=== PATIENT | female | born 1965 | race Caucasian/White ===

== ENCOUNTER 2019-08-17 08:36 | Outpatient (CLI) | payer OTHER, SELFPAY ==
[2019-08-17 09:08] LABS: Alanine Aminotransferase 21 U/L (4-35); Albumin Level 4.1 g/dL (3.5-5.1); Alkaline Phosphatase 73 U/L (38-126); Aspartate Amino Transferase 25 U/L (14-36); Bilirubin,Total 0.6 mg/dL (0.2-1.3); Blood Urea Nitrogen 12 mg/dL (7-17); Calcium 9.3 mg/dL (8.4-10.2); Carbon Dioxide 26 mmol/L (22-30); Chloride 101 mmol/L (98-107); Cholesterol 155 mg/dL (0-200); Estimated Glomerular Filt Rate > 60; Glucose 100 mg/dL (65-105); HDL Direct 28 mg/dL; Sodium 138 mmol/L (137-145); Triglycerides 307 mg/dL (<150)
[2019-08-17 09:19] LABS: LDL Cholesterol Direct 74 mg/dL
[2019-08-20 17:42] LABS: Vitamin D 1,25 (OH)2 Total 118 pg/mL (18-72); Vitamin D2 1,25 (OH)2 <8 pg/mL; Vitamin D3 1,25 (OH)2 118 pg/mL
== END 2019-08-17 08:37 | disposition home or self-care (01) ==
PROVIDERS: PCP Emergency Medicine; Visit Provider Emergency Medicine
DX: E78.2 Mixed hyperlipidemia (principal); E55.9 Vitamin D deficiency, unspecified
CPT/HCPCS: 36415; 80053; 80061; 82652

== ENCOUNTER 2019-11-12 13:23 | Emergency (ER) | payer OTHER, SELFPAY ==
--- NOTE | ~2019-11-12 | XR_ITS ---
EXAMINATION: XR wrist RT min 3V DATE: 11/12/2019 14:11 INDICATION: Right wrist injury and pain. TECHNIQUE: 4 views of right wrist were obtained. COMPARISON: None. FINDINGS: Bone alignment is normal. No fracture. There is mild osteoarthritis of first carpometacarpa l joint and second metacarpophalangeal joint. IMPRESSION: 1. Mild polyarticular osteoarthritis. Reviewed, dictated and finalized at location A.
--- NOTE | ~2019-11-12 | XR_ITS ---
EXAMINATION: XR knee LT min 4V DATE: 11/12/2019 14:13 INDICATION: Left knee injury and pain. TECHNIQUE: 4 views of left knee were obtained. COMPARISON: Left knee radiographs 06/26/2013 FINDINGS: Bone alignment is normal. No fracture. There is mild osteoarthritis of medial and lateral c ompartments and moderate osteoarthritis of patellofemoral compartment. There is a moderate-sized knee joint effusion. IMPRESSION: 1. Moderate left knee osteoarthritis. 2. Moderate-sized left knee joint effusion. Reviewed, dictated and finalized at location A.
--- NOTE | ~2019-11-12 | XR_ITS ---
EXAMINATION: XR forearm LT 2V DATE: 11/12/2019 14:11 INDICATION: Left forearm injury. TECHNIQUE: 2 views of left forearm were obtained. COMPARISON: None. FINDINGS: Bone alignment is normal. No fracture. Joint spaces are well maintained. There is no elbow joint effusion. IMPRESSION: 1. No fracture. Reviewed, dictated and finalized at location A. IMPRESSION: 1. No fracture.
[2019-11-12 13:39] VITALS: BP 146/94; PULSE 78; RESP 20; TEMP 36.3; O2SAT 99
[2019-11-12 15:21] VITALS: BP 152/98; PULSE 71; RESP 18; TEMP 36.2; O2SAT 98
--- NOTE | 2019-11-12 15:41 | ED.LOWEXIN ---
HPI - Extremity Injury (Lower) General Chief Complaint: Extremity Injury, Lower <Diana Orr PA-C - Last Filed: 11/12/19 19:20> Stated Complaint: fell, knee and elbow pain <Diana Orr PA-C - Last Filed: 11/12/19 19:20> Time Seen by Provider: 11/12/19 13:45 <Diana Orr PA-C - Last Filed: 11/12/19 19:20> Source: patient <Diana Orr PA-C - Last Filed: 11/12/19 19:20> Mode of arrival: ambulatory <THALIA Lvoe Last Filed: 11/12/19 19:20> Limitations: no limitations <iDana Orr PA-C - Last Filed: 11/12/19 19:20> History of Present Illness HPI Narrative: Patient presents with chief complaint of pain to left knee, left elbow and right palm after landing on these areas after tripping and falling in the cafeteria prior to come to the emergency department. Patient denies prior fractures to the extremities. Patient does report past carpal tunnel surgery to right wrist. Patient reports tight sensation to the left knee. Patient notes some improvement in her discomfort with application of ice. Patient states that she was concerned with how hard she came down on the knee that she may have fractured her patella. Patient denies any chance of or any other symptoms. Patient denies any impact to her head, chest pain, shortness of breath or any other symptoms. <Diana Orr PA-C - Last Filed: 11/12/19 19:20> Related Data Home Medications: Home Medications Medication Instructions Recorded Confirmed magnesium 500 mg PO DAILY 05/02/19 05/02/19 norethindrone ac-eth estradiol 1 tablet PO DAILY 05/02/19 05/02/19 [05/13 (21)] vitamin B complex 1 tablet PO DAILY 05/02/19 05/02/19 acyclovir 5 % topical cream See Rx Instructions .ROUTE .COMPLEX 09/09/19 cyclobenzaprine 10 mg tablet 10 mg PO TID PRN 09/09/19 <THALIA Love Last Filed: 11/12/19 19:20> Allergies/Adverse Reactions: Allergies Allergy/AdvReac Type Severity Reaction Status Date / Time MEPERIDINE HCL Allergy Intermediate NAUSEA Uncoded 11/12/19 13:43 METOCLOPRAMIDE HCL Allergy Intermediate JITTERY Uncoded 11/12/19 13:43 <Diana Orr PA-C - Last Filed: 11/12/19 19:20> Review of Systems Review of Systems: Narrative: CONSTITUTIONAL: Denies fever, chills, or sweats. EYES: Denies visual changes, redness, or discharge. ENT: Denies rhinorrhea, congestion, sore throat, or otalgia. CARDIOVASCULAR: Denies chest pain, palpitations, or edema. RESPIRATORY: Denies cough or dyspnea. GASTROINTESTINAL: Denies abdominal pain, nausea, vomiting, or diarrhea. GENITOURINARY: Denies dysuria or hematuria. SKIN: Denies rash or itching. MUSCULOSKELETAL: Reports right hand, left elbow, left knee pain denies back pain or myalgia. NEUROLOGIC: Denies headache, numbness, dizziness, or weakness. PSYCHIATRIC: Denies anxiety or depression. <Diana Orr PA-C - Last Filed: 11/12/19 19:20> [facility] Social History Social History: Social History Smoking status: Never smoker Alcohol intake: current <Diana Orr PA-C - Last Filed: 11/12/19 19:20> Exam Narrative: Exam Narrative: GENERAL: Well-appearing, well-nourished, and in no acute distress. HEAD: Normocephalic, atraumatic. EYES: PERRLA and EOMI. ENT: Nares clear, no rhinorrhea or epistaxis. External ears without noted abnormalities. External mouth without abnormalities. NECK: Supple. No adenopathy or masses. No carotid bruits or JVD CHEST: No respiratory distress. No tachypnea or labored breathing. ABDOMEN: Soft, nontender, nondistended, normal active bowel sounds. EXTREMITIES: Tenderness palpation of left knee. No significant laxity noted. No abrasions or lacerations noted. Flexion uncomfortable but only decreased by approximately 20%. Diffuse tenderness to left elbow and right palm. No bony point tenderness noted. No abrasions. Healed surgical scar noted to dorsal asp
== END 2019-11-12 15:57 | disposition home or self-care (01) ==
PROVIDERS: Emergency Provider Emergency Medicine
DX: M25.462 Effusion, left knee (principal)
CPT/HCPCS: 73090; 73110; 73564; 99284

== ENCOUNTER 2020-01-13 07:56 | Outpatient (CLI) | payer OTHER, SELFPAY ==
[2020-01-13 09:01] LABS: Alanine Aminotransferase 22 U/L (4-35); Albumin Level 3.9 g/dL (3.5-5.1); Alkaline Phosphatase 73 U/L (38-126); Anion Gap 9 mmol/L (8-16); Aspartate Amino Transferase 24 U/L (14-36); Bilirubin,Total 0.6 mg/dL (0.2-1.3); Blood Urea Nitrogen 13 mg/dL (7-17); Calcium 9.5 mg/dL (8.4-10.2); Carbon Dioxide 24 mmol/L (22-30); Chloride 102 mmol/L (98-107); Cholesterol 166 mg/dL (0-200); Estimated Glomerular Filt Rate > 60; Glucose 115 mg/dL (65-105); HDL Direct 34 mg/dL; Potassium 4.3 mmol/L (3.4-5.0); Sodium 135 mmol/L (137-145); Triglycerides 317 mg/dL (<150)
[2020-01-13 09:13] LABS: LDL Cholesterol Direct 79 mg/dL
[2020-01-13 09:18] LABS: Vitamin D 25 Hydroxy 37.2 ng/mL
== END 2020-01-13 07:57 | disposition home or self-care (01) ==
PROVIDERS: PCP Emergency Medicine; Visit Provider Emergency Medicine
DX: E55.9 Vitamin D deficiency, unspecified (principal); E53.8 Deficiency of other specified B group vitamins; E78.2 Mixed hyperlipidemia
CPT/HCPCS: 36415; 80053; 80061; 82306; 82607; 82746

== ENCOUNTER 2020-02-05 08:28 | Outpatient (CLI) | payer OTHER, SELFPAY ==
--- NOTE | ~2020-02-05 | MM_ITS ---
EXAMINATION: MM screening judith BI w lena HISTORY: Screening TECHNIQUE: Craniocaudal and mediolateral oblique 3-D tomosynthesis images were obtained and synthetic 2-D images were generated. CAD analysis was submitted and interpreted. COMPARISON: Comparison to multiple prior studies sequentially, with oldest reviewed study dated 11/09. BREAST PARENCHYMAL COMPOSITION: There are scattered areas of fibroglandular density. FINDINGS: There is no evidence of suspicious mass, calcification, or architectural distortion to sugg est malignancy in either breast. There has been no suspicious interval change. IMPRESSION: 1. No mammographic evidence of malignancy. 2. Recommend routine screening mammography in one year. BI-RADS Category 1: Negative Reviewed, dictated and finalized at location A.
== END 2020-02-05 08:29 | disposition home or self-care (01) ==
LOC: ANHIMG 08:30
PROVIDERS: PCP Emergency Medicine; Visit Provider Obstetrics & Gynecology
DX: Z12.31 Encounter for screening mammogram for malignant neoplasm of breast (principal)
CPT/HCPCS: 77063; 77067

== ENCOUNTER 2020-05-30 11:21 | Outpatient (CLI) | payer OTHER, SELFPAY ==
[2020-05-30 12:03] LABS: Alanine Aminotransferase 27 U/L (4-35); Albumin Level 3.9 g/dL (3.5-5.1); Alkaline Phosphatase 77 U/L (38-126); Anion Gap 6 mmol/L (8-16); Aspartate Amino Transferase 30 U/L (14-36); Bilirubin,Total 0.6 mg/dL (0.2-1.3); Blood Urea Nitrogen 15 mg/dL (7-17); Calcium 8.9 mg/dL (8.4-10.2); Carbon Dioxide 28 mmol/L (22-30); Chloride 103 mmol/L (98-107); Cholesterol 167 mg/dL (0-200); Estimated Glomerular Filt Rate > 60; Glucose 92 mg/dL (65-105); HDL Direct 36 mg/dL; Potassium 4.1 mmol/L (3.4-5.0); Sodium 137 mmol/L (137-145); Triglycerides 313 mg/dL (<150)
[2020-05-30 12:14] LABS: LDL Cholesterol Direct 76 mg/dL
[2020-05-30 14:25] LABS: Hemoglobin A1C 5.7 % (<5.7)
== END 2020-05-30 11:22 | disposition home or self-care (01) ==
LOC: ANHLAB 11:22
PROVIDERS: PCP Emergency Medicine; Visit Provider Emergency Medicine
DX: E78.5 Hyperlipidemia, unspecified (principal); E11.9 Type 2 diabetes mellitus without complications
CPT/HCPCS: 36415; 80053; 80061; 83036

== ENCOUNTER 2021-02-09 14:14 | Outpatient (CLI) | payer OTHER, SELFPAY ==
--- NOTE | ~2021-02-09 | MM_ITS ---
EXAMINATION: MM screening judith BI w lena HISTORY: Screening mammogram TECHNIQUE: Craniocaudal and mediolateral oblique 3-D tomosynthesis images were obtained and synthetic 2-D images were generated. CAD analysis was submitted and interpreted. COMPARISON: 02/05/2020, 01/08/2019, 11/10/2017 bilateral digital screening mammogram examinations BREAST PARENCHYMAL COMPOSITION: There are scattered areas of fibroglandular density. FINDINGS: There are multiple stable circumscribed subcentimeter opacities in the right axillary tail area and to a lesser extent left axillary tail, likely due to benign intramammary lymph nodes. There is no evidence of suspicious mass, calcification, or architectural distortion to suggest malignancy i n either breast. There has been no suspicious interval change. IMPRESSION: 1. No mammographic evidence of malignancy. 2. Recommend routine screening mammography in one year. BI-RADS Category 2: Benign finding(s). Reviewed, dictated and finalized at location A.
== END 2021-02-09 14:15 | disposition home or self-care (01) ==
LOC: ANHIMG 14:15
PROVIDERS: PCP Emergency Medicine; Visit Provider Obstetrics & Gynecology
DX: Z12.31 Encounter for screening mammogram for malignant neoplasm of breast (principal)
CPT/HCPCS: 77063; 77067

== ENCOUNTER 2021-05-09 09:04 | Emergency (ER) | payer OTHER, SELFPAY ==
--- NOTE | 2021-05-09 09:12 | ED.GENADULT ---
HPI - General Adult General Chief complaint: Upper Respiratory Infection Stated complaint: sore throat/benedict/aches Time Seen by Provider: 05/09/21 09:12 Source: patient Mode of arrival: ambulatory Limitations: no limitations Related Data Home Medications Medication Instructions Recorded Confirmed magnesium 500 mg PO DAILY 05/02/19 05/02/19 norethindrone ac-eth estradiol 1 tablet PO DAILY 05/02/19 05/02/19 [Junel 05/13 (21)] vitamin B complex 1 tablet PO DAILY 05/02/19 05/02/19 lysine 500 mg tablet 500 mg PO DAILY 11/15/19 L.acidophil-L.plantar-Bifido 7 PO 11/21/19 [up4 Probiotics Adult] vitamin E mixed PO 11/21/19 Allergies Allergy/AdvReac Type Severity Reaction Status Date / Time MEPERIDINE HCL Allergy Intermediate NAUSEA Uncoded 05/09/21 09:18 METOCLOPRAMIDE HCL Allergy Intermediate JITTERY Uncoded 05/09/21 09:18 Review of Systems Review of Systems: CONSTITUTIONAL: Denies fever, chills, or sweats. EYES: Denies visual changes, redness, or discharge. ENT: Denies rhinorrhea, congestion, sore throat, or otalgia. CARDIOVASCULAR: Denies chest pain, palpitations, or edema. RESPIRATORY: Denies cough or dyspnea. GASTROINTESTINAL: Denies abdominal pain, nausea, vomiting, or diarrhea. GENITOURINARY: Denies dysuria or hematuria. SKIN: Denies rash or itching. MUSCULOSKELETAL: Denies back pain, joint pain, or myalgia. NEUROLOGIC: Denies headache, numbness, or weakness. PSYCHIATRIC: Denies anxiety or depression. [facility] Past Medical History Medical History Cervical endometriosis Contusion of left forearm (11/12/19) Contusion of left knee (11/12/19) GERD (gastroesophageal reflux disease) Hypertension Hypothyroid Morbid obesity KEITH (obstructive sleep apnea) Sleep apnea Sprain of right hand (11/12/19) Vision abnormalities Surgical History Surgical History Hx laparoscopic cholecystectomy Hx of carpal tunnel repair Hx of section Hx of esophagogastroduodenoscopy S/P removal of right ovary Family History Family History Father Hypertension Mother Hypertension Sibling Family history of gastrointestinal disorder Diabetes mellitus Hypertension Grandparent Acute myocardial infarction Grandparent Multiple myeloma Other Cerebrovascular accident Family history of cardiovascular disease Family history of kidney disease Social History Social History Smoking status: Never smoker Alcohol intake: current Comments At the time of my signature I agree with nursing past medical history, surgical, social, and family history. There is no relevant family history pertinent to the presenting complaint. Exam Narrative: GENERAL: Well-appearing, well-nourished, and in no acute distress. HEAD: Normocephalic, atraumatic. EYES: PERRLA and EOMI. ENT: Nares clear, no rhinorrhea or epistaxis. Mucous membranes moist. NECK: Supple. No lymphadenopathy CHEST: Clear to auscultation. No respiratory distress. HEART: Regular rate and rhythm. No murmur heard. Normal peripheral pulses. ABDOMEN: Soft, nontender, nondistended, normal active bowel sounds. EXTREMITIES: Normal range of motion. No edema. SKIN: Warm, dry, no rash. NEURO: No focal deficits. Alert and oriented x3. Course Course Level of Care: Express Care Visit Vital Signs Vital signs: Vital Signs Temperature 36.9 C 05/09/21 09:13 Pulse Rate 69 05/09/21 09:13 Respiratory Rate 05/09/21 09:13 Blood Pressure 172/82 H 05/09/21 09:13 Pulse Oximetry 97 05/09/21 09:13 Temperature 36.9 C 05/09/21 09:13 Pulse Rate 69 05/09/21 09:13 Respiratory Rate 05/09/21 09:13 Blood Pressure 172/82 H 05/09/21 09:13 Pulse Oximetry 97 05/09/21 09:13 Vital signs reviewed Medical Decision Making Differential Diagnos
[2021-05-09 09:13] VITALS: BP 172/82; PULSE 69; RESP 20; TEMP 36.9; O2SAT 97
[2021-05-10 13:26] LABS: SARS-CoV-2 RNA PCR Positive
== END 2021-05-09 09:50 | disposition home or self-care (01) ==
PROVIDERS: Emergency Provider Nurse Practitioner Family; PCP Emergency Medicine
DX: U07.1 COVID-19 (principal); N80.0 Endometriosis of uterus; K21.9 Gastro-esophageal reflux disease without esophagitis; I10 Essential (primary) hypertension; E03.9 Hypothyroidism, unspecified; G47.33 Obstructive sleep apnea (adult) (pediatric)
CPT/HCPCS: 87804; 99213; C9803; G0463; U0003; U0005

== ENCOUNTER 2021-08-06 08:14 | Outpatient (CLI) | payer OTHER, SELFPAY ==
[2021-08-06 08:46] LABS: Alanine Aminotransferase 37 U/L (4-35); Albumin Level 3.8 g/dL (3.5-5.1); Alkaline Phosphatase 83 U/L (38-126); Anion Gap 11 mmol/L (8-16); Aspartate Amino Transferase 71 U/L (14-36); Bilirubin,Total 0.4 mg/dL (0.2-1.3); Blood Urea Nitrogen 13 mg/dL (7-17); Calcium 8.2 mg/dL (8.4-10.2); Carbon Dioxide 22 mmol/L (22-30); Chloride 102 mmol/L (98-107); Cholesterol 159 mg/dL (0-200); Estimated Glomerular Filt Rate > 60; Glucose 134 mg/dL (65-110); HDL Direct 32 mg/dL; Potassium 3.2 mmol/L (3.4-5.0); Sodium 135 mmol/L (137-145); Triglycerides 371 mg/dL (<150)
[2021-08-06 08:57] LABS: LDL Cholesterol Direct 56 mg/dL
[2021-08-12 15:01] LABS: Renin 6.11 ng/mL/h (0.25-5.82)
== END 2021-08-06 08:15 | disposition home or self-care (01) ==
LOC: ANHLAB 08:16
PROVIDERS: PCP Emergency Medicine; Visit Provider Emergency Medicine
DX: I10 Essential (primary) hypertension (principal); E03.9 Hypothyroidism, unspecified; Z13.220 Encounter for screening for lipoid disorders
CPT/HCPCS: 36415; 80053; 80061; 82533; 84244; 84443

== ENCOUNTER 2021-08-17 15:13 | Outpatient (CLI) | payer OTHER, SELFPAY ==
[2021-08-17 16:18] LABS: Potassium 4.1 mmol/L (3.4-5.0)
== END 2021-08-17 15:14 | disposition home or self-care (01) ==
PROVIDERS: PCP Emergency Medicine; Visit Provider Emergency Medicine
DX: E87.6 Hypokalemia (principal); I10 Essential (primary) hypertension
CPT/HCPCS: 36415; 82088; 84132

== ENCOUNTER 2021-09-10 07:46 | Outpatient (CLI) | payer OTHER, SELFPAY ==
--- NOTE | ~2021-09-10 | US_ITS ---
EXAMINATION: US retroperitoneal duplex ltd DATE: 09/10/2021 09:27 CDT INDICATION: Essential hypertension TECHNIQUE: Multiple grayscale, color Doppler, and pulsed Doppler images of the kidneys and renal zay david were obtained. COMPARISON: None. FINDINGS: The aorta peak systolic velocity is 102 cm/s. The right renal artery peak systolic velocity is 159 cm /s in the proximal segment, 175 cm/s in the mid segment, 167 cm/s in the distal segment. The left jaleel al artery peak systolic velocity is 146 cm/s in the proximal segment, 143 cm/s in the mid segment, 14 3 cm/s in the distal segment. The renal artery/aorta systolic ratio on the right is 1.7 and on the left is 1.42. Notes: renal artery stenosis is >=180-200 cm/s or >3.5:1 ratio of renal artery velocity to aorta. Thi s correlates with >50-60% stenosis. IMPRESSION: 1. No Doppler evidence of renal artery stenosis. Reviewed, dictated and finalized at location D.
== END 2021-09-10 07:47 | disposition home or self-care (01) ==
LOC: ANHIMG 07:49
PROVIDERS: PCP Emergency Medicine; Visit Provider Emergency Medicine
DX: I10 Essential (primary) hypertension (principal)
CPT/HCPCS: 93976

== ENCOUNTER 2021-09-21 07:37 | Outpatient (CLI) | payer OTHER, SELFPAY ==
[2021-09-21 08:43] LABS: Albumin Level 4.1 g/dL (3.5-5.1); Anion Gap 9 mmol/L (8-16); Blood Urea Nitrogen 18 mg/dL (7-17); Carbon Dioxide 27 mmol/L (22-30); Chloride 102 mmol/L (98-107); Estimated Glomerular Filt Rate > 60; Glucose 170 mg/dL (65-110); Sodium 138 mmol/L (137-145)
[2021-09-21 08:51] LABS: Total Volume 24 Hour Urine 2300 ml
[2021-09-21 08:54] LABS: Parathyroid Intact 44.1 pg/mL (7.5-53.5)
[2021-09-21 08:55] LABS: Sodium Urine Random 177 meq/L
[2021-09-21 09:01] LABS: Sodium 24 Hour Urine 407 mmol/day (40-220)
[2021-09-27 11:29] LABS: Renin 2.91 ng/mL/h (0.25-5.82)
== END 2021-09-21 07:38 | disposition home or self-care (01) ==
LOC: ANHLAB 07:39
PROVIDERS: PCP Emergency Medicine; Visit Provider Internal Medicine Nephrology
DX: I10 Essential (primary) hypertension (principal)
CPT/HCPCS: 36415; 80069; 81050; 82088; 82530; 83835; 83970; 84244; 84300

== ENCOUNTER 2021-10-21 07:39 | Outpatient (CLI) | payer OTHER, SELFPAY ==
[2021-10-26 09:10] LABS: Metanephrine, Free <25 pg/mL (<=57); Normetanephrine, Free 41 pg/mL (<=148); Total, Free (MN + NMN) 41 pg/mL (<=205)
== END 2021-10-21 07:40 | disposition home or self-care (01) ==
PROVIDERS: PCP Emergency Medicine; Visit Provider Internal Medicine Nephrology
DX: R79.89 Other specified abnormal findings of blood chemistry (principal); I10 Essential (primary) hypertension
CPT/HCPCS: 36415; 83835; 84443

== ENCOUNTER 2021-12-03 09:10 | Outpatient (CLI) | payer OTHER, SELFPAY ==
--- NOTE | ~2021-12-03 | CT_ITS ---
EXAMINATION: CTA abdomen DATE: 12/03/2021 14:15 CDT INDICATION: Hypertension. TECHNIQUE: Computed tomographic angiography (CTA) of the abdomen was performed without and with 100 m L Omnipaque-350 intravenous contrast. The dose-length product was 1003.73 mGy-cm. Maximum intensity p rojection 3D-reconstructions of the aorta and other arteries were constructed by the technologist on a separate workstation. COMPARISON: CT dated 08/08/2003. FINDINGS: There is dependent atelectasis. Heart size normal. No significant pleural or pericardial ef fusion. Fatty infiltration of the liver. Status post cholecystectomy. There are calcified granulomas of the spleen. The pancreas, adrenal glands and kidneys are unremarkable. The celiac axis, renal zay david, SMA and AMALIA are widely patent. There is a peripherally calcified 2.5 cm right renal artery aneu rysm which appears slightly increased in size compared with prior examination. There is a fat-contain ing umbilical hernia. No evidence for aortic aneurysm or dissection. No free air or free fluid. IMPRESSION: 1. 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 2: No significant evidence for renal artery stenosis. Reviewed, dictated and finalized at location A. IMPRESSION: 1. Slightly increased size of 2.5 cm right renal artery aneurysm which is perip herally calcified. 2: No significant evidence for renal artery stenosis.
[2021-12-03 09:34] LABS: Estimated Glomerular Filt Rate > 60
== END 2021-12-03 09:11 | disposition home or self-care (01) ==
LOC: ANHIMG 09:13
PROVIDERS: PCP Emergency Medicine; Visit Provider Internal Medicine Nephrology
DX: I10 Essential (primary) hypertension (principal); I72.2 Aneurysm of renal artery
CPT/HCPCS: 74175; Q9967

== ENCOUNTER 2022-01-19 14:37 | Outpatient (CLI) | payer OTHER, SELFPAY ==
[2022-01-19 15:14] LABS: Creatinine Urine 74.9 mg/dL
[2022-01-19 15:44] LABS: Total Protein Urine Random < 5 mg/dL; Ur Ttl Prot Creatinine Ratio < 0.07 mg/mg (0-0.20)
[2022-01-19 16:07] LABS: Albumin Level 4.2 g/dL (3.5-5.1); Anion Gap 14 mmol/L (8-16); Blood Urea Nitrogen 14 mg/dL (7-17); Calcium 9.2 mg/dL (8.4-10.2); Carbon Dioxide 24 mmol/L (22-30); Chloride 99 mmol/L (98-107); Estimated Glomerular Filt Rate > 60; Glucose 122 mg/dL (65-110); Phosphorus 4.3 mg/dL (2.5-4.5); Potassium 3.7 mmol/L (3.4-5.0); Sodium 137 mmol/L (137-145)
== END 2022-01-19 14:38 | disposition home or self-care (01) ==
LOC: ANHLAB 14:38
PROVIDERS: PCP Emergency Medicine; Visit Provider Internal Medicine Nephrology
DX: I10 Essential (primary) hypertension (principal)
CPT/HCPCS: 36415; 80069; 82570; 84156

== ENCOUNTER 2022-06-15 07:48 | Outpatient (CLI) | payer OTHER, SELFPAY ==
--- NOTE | ~2022-06-15 | CT_ITS ---
EXAMINATION: CTA abdomen pelvis DATE: 06/15/2022 08:27 INDICATION: Renal artery aneurysm TECHNIQUE: Computed tomographic angiography (CTA) of the abdomen and pelvis was performed with 100 mL Omnipaque-350 intravenous contrast. Additional 3D reconstructions utilizing rotating maximum intensi ty projection (MIP) were performed. Automated exposure control and iterative reconstruction technique were employed. The dose-length product was 1653.26 mGy-cm. COMPARISON: 12/03/2021 FINDINGS: Dependent mosaic attenuation with associated mild volume loss in the bilateral lower lobes consistent with atelectasis with subsegmental regions of air trapping related to small airway disease. Cardiome cade. No pericardial effusion. Calcified paraesophageal lymph nodes along with a few small splenic ca lcifications consistent with old granulomatous disease. Diffuse hepatic steatosis. Cholecystectomy cl ips the gallbladder fossa. Pancreas and bilateral adrenal glands are normal. Unchanged rim calcified right renal artery aneurysm measuring 2.5 cm maximal diameter on sagittal imaging. Bilateral kidneys are otherwise normal. Sigmoid diverticula without adjacent inflammatory stranding to suggest divertic ulitis. Small bowel and appendix are normal. Bladder, uterus and left ovary are normal. Is nonvisuali zed right ovary with suture line at the right adnexa suggesting prior right oophorectomy. No free int raperitoneal gas or fluid. No pathologically enlarged abdominal or pelvic lymphadenopathy. Normal merced iber abdominal aorta. Small amount of nonhemodynamically significant atherosclerotic calcification al sarina the bilateral iliac arteries. No significant stenosis at the celiac axis, superior and inferior m esenteric or bilateral renal arteries. Inferior mesenteric artery Moderate thoracic and mild lumbar s pondylosis. There are bridging osteophytes at multiple levels in the thoracic spine, consistent with diffuse idiopathic skeletal hyperostosis (DISH). IMPRESSION: 1. 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 Reviewed, dictated and finalized at location A. OR [employer]
[2022-06-15 08:16] LABS: Estimated Glomerular Filt Rate > 60
== END 2022-06-15 07:49 | disposition home or self-care (01) ==
LOC: ANHIMG 07:49
PROVIDERS: PCP Emergency Medicine; Visit Provider Internal Medicine
DX: I72.2 Aneurysm of renal artery (principal)
CPT/HCPCS: 74174; Q9967

== ENCOUNTER 2022-06-29 07:37 | Outpatient (CLI) | payer OTHER, SELFPAY ==
[2022-06-29 08:17] LABS: Creatinine Urine 66.4 mg/dL
[2022-06-29 08:18] LABS: Alanine Aminotransferase 27 U/L (6-35); Albumin Level 4.4 g/dL (3.5-5.1); Alkaline Phosphatase 98 U/L (38-126); Anion Gap 10 mmol/L (8-16); Anion Gap 7 mmol/L (8-16); Aspartate Amino Transferase 29 U/L (14-36); Bilirubin,Total 0.6 mg/dL (0.2-1.3); Blood Urea Nitrogen 16 mg/dL (7-17); Blood Urea Nitrogen 17 mg/dL (7-17); Calcium 9.2 mg/dL (8.4-10.2); Calcium 9.3 mg/dL (8.4-10.2); Carbon Dioxide 26 mmol/L (22-30); Chloride 102 mmol/L (98-107); Chloride 99 mmol/L (98-107); Cholesterol 209 mg/dL (0-200); Estimated Glomerular Filt Rate > 60; Glucose 124 mg/dL (65-110); HDL Direct 37 mg/dL; Phosphorus 4.9 mg/dL (2.5-4.5); Potassium 3.8 mmol/L (3.4-5.0); Sodium 132 mmol/L (137-145); Sodium 138 mmol/L (137-145); Triglycerides 467 mg/dL (<150)
[2022-06-29 08:29] LABS: LDL Cholesterol Direct 77 mg/dL
[2022-06-29 08:59] LABS: Total Protein Urine Random < 5 mg/dL; Ur Ttl Prot Creatinine Ratio < 0.08 mg/mg (0-0.20)
[2022-07-03 16:01] LABS: Vitamin D 1,25 (OH)2 Total 60 pg/mL (18-72); Vitamin D2 1,25 (OH)2 <8 pg/mL; Vitamin D3 1,25 (OH)2 60 pg/mL
== END 2022-06-29 07:38 | disposition home or self-care (01) ==
LOC: ANHLAB 07:38
PROVIDERS: PCP Emergency Medicine; Referring Provider Internal Medicine Nephrology; Visit Provider Emergency Medicine
DX: R53.83 Other fatigue (principal); I10 Essential (primary) hypertension
CPT/HCPCS: 36415; 80053; 80061; 80069; 82570; 82652; 84156; 84443

== ENCOUNTER 2022-07-05 15:57 | Outpatient (CLI) | payer OTHER, SELFPAY ==
--- NOTE | ~2022-07-05 | MM_ITS ---
EXAMINATION: MM screening judith BI w lena HISTORY: Screening mammogram TECHNIQUE: Craniocaudal and mediolateral oblique 3-D tomosynthesis images were obtained and synthetic 2-D images were generated. CAD analysis was submitted and interpreted. COMPARISON: 02/09/2021, 02/05/2020, 01/08/2019 bilateral screening mammogram examinations BREAST PARENCHYMAL COMPOSITION: There are scattered areas of fibroglandular density. FINDINGS: Stable circumscribed benign-appearing intramammary lymph node since . There is no evidence of suspicious mass, calcification, or architectural distortion to suggest malignancy in eith er breast. There has been no suspicious interval change. IMPRESSION: 1. No mammographic evidence of malignancy. 2. Recommend routine screening mammography in one year. BI-RADS Category 2: Benign finding(s). Reviewed, dictated and finalized at location A.
== END 2022-07-05 15:58 | disposition home or self-care (01) ==
PROVIDERS: PCP Emergency Medicine; Visit Provider Obstetrics & Gynecology
DX: Z12.31 Encounter for screening mammogram for malignant neoplasm of breast (principal)
CPT/HCPCS: 77063; 77067

== ENCOUNTER 2022-10-11 07:07 | Outpatient (CLI) | payer OTHER, SELFPAY ==
[2022-10-11 08:00] LABS: Alanine Aminotransferase 25 U/L (6-35); Alkaline Phosphatase 79 U/L (38-126); Anion Gap 9 mmol/L (8-16); Aspartate Amino Transferase 27 U/L (14-36); Bilirubin,Total 0.6 mg/dL (0.2-1.3); Blood Urea Nitrogen 15 mg/dL (7-17); Calcium 8.9 mg/dL (8.4-10.2); Carbon Dioxide 26 mmol/L (22-30); Chloride 101 mmol/L (98-107); Cholesterol 188 mg/dL (0-200); Estimated Glomerular Filt Rate > 60; Glucose 111 mg/dL (65-110); HDL Direct 35 mg/dL; Potassium 3.9 mmol/L (3.4-5.0); Sodium 136 mmol/L (137-145); Triglycerides 435 mg/dL (<150)
[2022-10-11 08:11] LABS: LDL Cholesterol Direct 83 mg/dL
[2022-10-11 08:27] LABS: Hemoglobin A1C 5.6 % (<5.7)
== END 2022-10-11 07:08 | disposition home or self-care (01) ==
PROVIDERS: PCP Emergency Medicine; Visit Provider Emergency Medicine
DX: R73.9 Hyperglycemia, unspecified (principal); I10 Essential (primary) hypertension
CPT/HCPCS: 36415; 80053; 80061; 83036

== ENCOUNTER 2022-12-28 07:48 | Outpatient (CLI) | payer OTHER, SELFPAY ==
--- NOTE | ~2022-12-28 | CT_ITS ---
EXAMINATION: CTA abdomen pelvis DATE: 12/28/2022 08:22 INDICATION: Renal artery aneurysm TECHNIQUE: Computed tomographic angiography (CTA) of the abdomen and pelvis was performed with 100 mL Omnipaque-350 intravenous contrast. Maximum intensity projection 3D-reconstructions of the aorta and other arteries were constructed by the technologist on a separate workstation. The dose-length produ ct (DLP) was 1563.73 mGy-cm. Automated exposure control and iterative reconstruction technique were e mployed. COMPARISON: 06/15/2022 FINDINGS: Minimal dependent atelectasis is present in the lung bases. Cardiomegaly is noted. Punctate calcifications in an otherwise normal spleen likely represent healed granulomatous disease. The live r is diffusely low in attenuation when compared with the spleen, consistent with hepatic steatosis. C hanges of cholecystectomy are noted. The pancreas and adrenal glands are normal. The kidneys are unre markable. No pathologically enlarged abdominal or pelvic lymph nodes are identified. No free intraper itoneal gas or evidence of bowel obstruction. The appendix is normal. There is mild lumbar spondylosi s. No aneurysm or dissection of the abdominal aorta. The celiac axis, superior mesenteric artery, and in ferior mesenteric artery are normal at their origins. There are single renal arteries. 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 The pelvic vessels are unremarkable. IMPRESSION: 1. 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 Reviewed, dictated and finalized at location B.
[2022-12-28 08:15] LABS: Estimated Glomerular Filt Rate > 60
== END 2022-12-28 07:49 | disposition home or self-care (01) ==
PROVIDERS: PCP Emergency Medicine
DX: I72.2 Aneurysm of renal artery (principal)
CPT/HCPCS: 74174; Q9967

== ENCOUNTER 2023-02-06 15:49 | Outpatient (CLI) | payer OTHER, SELFPAY ==
[2023-02-06 17:00] LABS: Hematocrit 40.2 % (37.0-47.0); Hemoglobin 13.2 g/dL (12.0-15.0); Mean Corpuscular HGB Conc 32.8 g/dl (32-36); Mean Corpuscular Hemoglobin 29.9 pg (26-34); Mean Corpuscular Volume 91.2 fl (80-100); Platelet Count Result 326 k/mm3 (150-375); Red Blood Count 4.41 M/mm3 (4.2-5.4); Red Cell Distribution Width 12.8 % (11.5-14.5); White Blood Count 10.5 K/mm3 (4.5-10.0)
[2023-02-08 15:43] LABS: Albumin 4.1 g/dL (3.8-4.8); Alpha 1 Globulin 0.4 g/dL (0.2-0.3); Beta 1 Globulin 0.7 g/dL (0.4-0.6); Gamma Globulin 0.9 g/dL (0.8-1.7); Protein, Total 7.4 g/dL (6.1-8.1)
== END 2023-02-06 15:50 | disposition home or self-care (01) ==
PROVIDERS: PCP Emergency Medicine; Visit Provider Internal Medicine Nephrology
DX: I10 Essential (primary) hypertension (principal)
CPT/HCPCS: 36415; 84155; 84165; 85027

== ENCOUNTER 2023-02-07 07:43 | Outpatient (NON) | payer OTHER, SELFPAY ==
[2023-02-07 09:03] LABS: Total Protein Urine Random 8 mg/dL
[2023-02-07 09:04] LABS: Creatinine Urine 50.3 mg/dL; Ur Ttl Prot Creatinine Ratio 0.16 mg/mg (0-0.20)
== END 2023-02-07 07:44 | disposition home or self-care (01) ==
LOC: ANHLAB 07:44
PROVIDERS: PCP Emergency Medicine; Visit Provider Internal Medicine Nephrology
DX: I10 Essential (primary) hypertension (principal)
CPT/HCPCS: 82570; 84156

== ENCOUNTER 2023-05-03 07:03 | Outpatient (CLI) | payer OTHER, SELFPAY ==
[2023-05-03 07:47] LABS: Alanine Aminotransferase 26 U/L (6-35); Albumin Level 3.9 g/dL (3.5-5.1); Alkaline Phosphatase 97 U/L (38-126); Anion Gap 10 mmol/L (8-16); Aspartate Amino Transferase 28 U/L (14-36); Bilirubin,Total 0.5 mg/dL (0.2-1.3); Blood Urea Nitrogen 13 mg/dL (7-17); Calcium 8.9 mg/dL (8.4-10.2); Carbon Dioxide 26 mmol/L (22-30); Chloride 100 mmol/L (98-107); Cholesterol 183 mg/dL (0-200); Estimated Glomerular Filt Rate > 60; Glucose 135 mg/dL (65-110); HDL Direct 34 mg/dL; Potassium 3.9 mmol/L (3.4-5.0); Sodium 136 mmol/L (137-145); Triglycerides 329 mg/dL (<150)
[2023-05-03 07:57] LABS: LDL Cholesterol Direct 88 mg/dL
== END 2023-05-03 07:04 | disposition home or self-care (01) ==
PROVIDERS: PCP Emergency Medicine; Visit Provider Emergency Medicine
DX: E78.5 Hyperlipidemia, unspecified (principal); E07.9 Disorder of thyroid, unspecified
CPT/HCPCS: 36415; 80053; 80061; 84443

== ENCOUNTER 2023-05-04 14:46 | Outpatient (CLI) | payer OTHER, SELFPAY | END 2023-05-04 14:47 | disposition home or self-care (01) | LOC: ANHLAB 14:48 | PROVIDERS: PCP Emergency Medicine; Visit Provider Emergency Medicine | DX: Z22.322 Carrier or suspected carrier of Methicillin resistant Staphylococcus aureus (principal) | CPT/HCPCS: 87081 ==

== ENCOUNTER 2023-07-25 17:45 | Outpatient (CLI) | payer OTHER, SELFPAY ==
[2023-07-25 18:17] LABS: Albumin Level 4.3 g/dL (3.5-5.1); Anion Gap 11 mmol/L (4-12); Blood Urea Nitrogen 17 mg/dL (7-17); Calcium 9.7 mg/dL (8.4-10.2); Carbon Dioxide 23 mmol/L (22-30); Chloride 103 mmol/L (98-107); Estimated Glomerular Filt Rate > 60; Glucose 131 mg/dL (65-110); Phosphorus 3.7 mg/dL (2.5-4.5); Potassium 3.8 mmol/L (3.4-5.0); Sodium 137 mmol/L (137-145)
[2023-07-25 18:55] LABS: Creatinine Urine 85.2 mg/dL
[2023-07-25 19:56] LABS: Total Protein Urine Random < 5 mg/dL; Ur Ttl Prot Creatinine Ratio < 0.06 mg/mg (0-0.20)
== END 2023-07-25 17:46 | disposition home or self-care (01) ==
LOC: ANHLAB 17:46
PROVIDERS: PCP Emergency Medicine; Visit Provider Internal Medicine Nephrology
DX: I10 Essential (primary) hypertension (principal)
CPT/HCPCS: 36415; 80069; 82570; 84156

== ENCOUNTER 2023-08-25 09:35 | Outpatient (CLI) | payer OTHER, SELFPAY ==
[2023-08-25 10:17] LABS: Alanine Aminotransferase 27 U/L (6-35); Albumin Level 4.5 g/dL (3.5-5.1); Alkaline Phosphatase 91 U/L (38-126); Anion Gap 10 mmol/L (4-12); Aspartate Amino Transferase 33 U/L (14-36); Bilirubin,Total 0.7 mg/dL (0.2-1.3); Blood Urea Nitrogen 16 mg/dL (7-17); Calcium 9.8 mg/dL (8.4-10.2); Carbon Dioxide 24 mmol/L (22-30); Chloride 104 mmol/L (98-107); Cholesterol 200 mg/dL (0-200); Estimated Glomerular Filt Rate > 60; Glucose 106 mg/dL (65-110); HDL Direct 43 mg/dL; Potassium 3.7 mmol/L (3.4-5.0); Sodium 138 mmol/L (137-145); Triglycerides 281 mg/dL (<150)
[2023-08-25 10:28] LABS: LDL Cholesterol Direct 105 mg/dL
[2023-08-25 10:38] LABS: Vitamin D 25 Hydroxy 25.2 ng/mL
== END 2023-08-25 09:36 | disposition home or self-care (01) ==
LOC: ANHLAB 09:37
PROVIDERS: PCP Emergency Medicine; Visit Provider Emergency Medicine
DX: E78.5 Hyperlipidemia, unspecified (principal); E07.9 Disorder of thyroid, unspecified; E55.9 Vitamin D deficiency, unspecified
CPT/HCPCS: 36415; 80053; 80061; 82306; 84443

== ENCOUNTER 2023-09-06 16:02 | Outpatient (CLI) | payer OTHER, SELFPAY ==
--- NOTE | ~2023-09-06 | MM_ITS ---
EXAMINATION: MM screening judith BI w lena HISTORY: Screening mammogram TECHNIQUE: Craniocaudal and mediolateral oblique 3-D tomosynthesis images were obtained and synthetic 2-D images were generated. CAD analysis was submitted and interpreted. COMPARISON: 07/05/2022, 02/09/2021 bilateral screening mammogram examinations BREAST PARENCHYMAL COMPOSITION: There are scattered areas of fibroglandular density. FINDINGS: Multiple benign appearing intramammary lymph nodes are again noted. There is no evidence of suspicious mass, calcification, or architectural distortion to suggest malignancy in either breast. There has been no suspicious interval change. IMPRESSION: 1. No mammographic evidence of malignancy. 2. Recommend routine screening mammography in one year. BI-RADS Category 2: Benign finding(s). Reviewed, dictated and finalized at location B.
== END 2023-09-06 16:03 | disposition home or self-care (01) ==
LOC: ANHIMG 16:03
PROVIDERS: PCP Emergency Medicine; Visit Provider Obstetrics & Gynecology
DX: Z12.31 Encounter for screening mammogram for malignant neoplasm of breast (principal)
CPT/HCPCS: 77063; 77067

== ENCOUNTER 2024-01-08 07:33 | Outpatient (CLI) | payer OTHER, SELFPAY ==
[2024-01-08 08:11] LABS: Alanine Aminotransferase 26 U/L (6-35); Albumin Level 4.2 g/dL (3.5-5.1); Alkaline Phosphatase 95 U/L (38-126); Anion Gap 11 mmol/L (4-12); Aspartate Amino Transferase 32 U/L (14-36); Bilirubin,Total 0.5 mg/dL (0.2-1.3); Blood Urea Nitrogen 17 mg/dL (7-17); Calcium 9.1 mg/dL (8.4-10.2); Carbon Dioxide 27 mmol/L (22-30); Chloride 97 mmol/L (98-107); Cholesterol 195 mg/dL (0-200); Estimated Glomerular Filt Rate > 60; Glucose 138 mg/dL (65-110); HDL Direct 37 mg/dL; Phosphorus 3.7 mg/dL (2.5-4.5); Potassium 3.9 mmol/L (3.4-5.0); Sodium 135 mmol/L (137-145); Triglycerides 394 mg/dL (<150)
[2024-01-08 08:22] LABS: LDL Cholesterol Direct 94 mg/dL
[2024-01-08 10:22] LABS: Creatinine Urine 103.9 mg/dL
[2024-01-08 10:29] LABS: Vitamin D 25 Hydroxy 24.2 ng/mL
[2024-01-08 10:34] LABS: Total Protein Urine Random < 5 mg/dL; Ur Ttl Prot Creatinine Ratio < 0.05 mg/mg (0-0.20)
== END 2024-01-08 07:34 | disposition home or self-care (01) ==
PROVIDERS: PCP Emergency Medicine; Visit Provider Internal Medicine Nephrology
DX: E78.5 Hyperlipidemia, unspecified (principal); E55.9 Vitamin D deficiency, unspecified; E03.9 Hypothyroidism, unspecified; I10 Essential (primary) hypertension
CPT/HCPCS: 36415; 80053; 80061; 82306; 82570; 84100; 84156; 84443

== ENCOUNTER 2024-01-09 07:55 | Outpatient (CLI) | payer OTHER, SELFPAY ==
--- NOTE | ~2024-01-09 | CT_ITS ---
EXAMINATION: CTA abdomen pelvis DATE: 01/09/2024 08:26 INDICATION: Aneurysm of renal artery TECHNIQUE: Computed tomographic angiography (CTA) of the abdomen and pelvis was performed with 100 mL Omnipaque-350 intravenous contrast. Additional 3D reconstructions utilizing rotating maximum intensi ty projection (MIP) were performed. Automated exposure control and iterative reconstruction technique were employed. The dose-length product was 1777.09 mGy-cm. COMPARISON: 12/28/2022 FINDINGS: Mild discoid atelectasis in the right lower lobe. Mild cardiomegaly. No pericardial or pleural effusi on. Calcified mediastinal lymph nodes lung bases along with a few splenic calcifications consistent w ith old granulomatous disease. There is somewhat heterogeneous pattern of diffuse hepatic steatosis. Cholecystectomy clips at the gallbladder fossa. Pancreas, bilateral adrenal glands and kidneys are no rmal. 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 Bowels including the appendix are n ormal. Bladder, anteverted uterus and left ovary are normal. Right ovary is not visualized and there is a suture line in the right adnexal region consistent with prior right oophorectomy. Very small davion ateral fat-containing inguinal hernias. No free intraperitoneal gas or fluid. No pathologically enlar ged abdominal or pelvic lymphadenopathy. Moderate thoracic and mild lumbar spondylosis with bridging osteophytes at multiple levels in the lower thoracic spine consistent with diffuse idiopathic skeleta l hyperostosis (DISH). Bone island at the right femoral head. IMPRESSION: 1. 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 2. Diffuse hepatic steatosis. Reviewed, dictated and finalized at location B.
== END 2024-01-09 07:56 | disposition home or self-care (01) ==
LOC: ANHIMG 07:56
PROVIDERS: PCP Emergency Medicine
DX: I72.2 Aneurysm of renal artery (principal); K76.0 Fatty (change of) liver, not elsewhere classified
CPT/HCPCS: 74174; Q9967

== ENCOUNTER 2024-03-27 11:49 | Emergency (ER) | payer OTHER, SELFPAY ==
[2024-03-27 11:58] VITALS: BP 140/77; PULSE 83; RESP 16; TEMP 36.3; O2SAT 99
--- NOTE | 2024-03-27 12:20 | ED.URI ---
HPI - URI/Sore Throat General Chief Complaint: Upper Respiratory Infection Stated Complaint: SINUS CONGESTION/HEADACHE Source: patient and RN notes reviewed Mode of arrival: ambulatory Limitations: no limitations History of Present Illness HPI Narrative: 58-year-old female presented for complaint of sinus congestion and headache x3 days. Endorses laryngitis today, and only coughing from the post nasal draining. Denies sob, wheezing, n/v/d/f/c. Taking Elderberry and zinc, antihistamines and nasal spray. MD elicited complaint: cough Related Data Home Medications Medication Instructions Recorded Confirmed vitamin B complex 1 tablet PO DAILY 05/02/19 02/27/24 L.acidophil-L.plantar-Bifido 7 PO 11/21/19 02/27/24 [up4 Probiotics Adult] vitamin E mixed PO 11/21/19 02/27/24 valacyclovir 1 gram tablet 1,000 mg PO DAILY PRN 07/12/22 02/27/24 cinnamon bark 500 mg capsule 500 mg PO DAILY 02/08/23 02/27/24 (Cinnamon) bergamot extract 500 mg capsule 500 mg PO DAILY 01/09/24 02/27/24 (Lehigh Bergamot) estradiol-norethindrone acet 1 tablet PO 02/21/24 02/27/24 mg-0.5 mg tablet Allergies Allergy/AdvReac Type Severity Reaction Status Date / Time meperidine Allergy Intermediate Nausea Verified 03/27/24 12:22 metoclopramide Allergy Intermediate Nausea and Verified 03/27/24 12:22 Vomiting Review of Systems Review of Systems: CONSTITUTIONAL: Denies malaise, chills, sweats, fever EYES: Denies visual changes, redness, or discharge ENT: Reports rhinorrhea, congestion, sinus pain, denies otalgia, sore throat CARDIOVASCULAR: Denies chest pain, palpitations, edema RESPIRATORY: Reports cough, post nasal drainage. Denies dyspnea GASTROINTESTINAL: Denies abdominal pain, nausea, vomiting, diarrhea SKIN: Denies rash or itching MUSCULOSKELETAL: Denies myalgia PMFSH Past Medical History Medical History Cervical endometriosis Contusion of left forearm (11/12/19) Contusion of left knee (11/12/19) Elevated lipids Fatigue Gastro-esophageal reflux disease without esophagitis GERD (gastroesophageal reflux disease) Hypertension Hypothyroid Morbid obesity KEITH (obstructive sleep apnea) KEITH on CPAP Positive colorectal cancer screening using Cologuard test Pure hyperglyceridemia Sleep apnea Sore throat Sprain of right hand (11/12/19) Strain of right shoulder Vision abnormalities Vitamin D deficiency Surgical History Surgical History Hx laparoscopic cholecystectomy Hx of carpal tunnel repair Hx of section Hx of esophagogastroduodenoscopy S/P removal of right ovary Family History Family History Father Hypertension Mother Hypertension Sibling Family history of gastrointestinal disorder Diabetes mellitus Hypertension Grandparent Acute myocardial infarction Grandparent Multiple myeloma Other Cerebrovascular accident Family history of cardiovascular disease Family history of kidney disease Social History Social History Smoking status: Never smoker Second hand tobacco smoke exposure: No Alcohol intake: current Substance use: never Substance use type: does not use Do You Feel Safe in your Home?: Yes Lack of Transportation: No Lack of Food: Never True Current Housing: Decline to Answer Concerned About Future Housing: Decline to Answer Difficulty Paying Gas/Electric Bills: Decline to Answer Difficulty Paying for Meds: Decline to Answer Currently Unemployed: Decline to Answer Education: Decline to Answer Difficulty w/ Childcare or Family Care: Decline to Answer Living arrangements: with family Gender identity (if verbalized by the patient): Female Spiritual care concerns: No Agree to blood products: Yes Exam Narrative: GENERAL: Mildly Ill-appearing, nontoxic no acute distress. EYES: PERRLA, conjunctivae clear ENT: Mucous membranes moist. Nasal congestion with worse voice. TM pearly taylor with dull light reflex bilaterally; no tragal tenderness. Oropharynx not erythematous without lesions or exudate, no drooling, no trismus, uvula midline. No tripod positioning, muffled voice, soft palate or pharyngeal wall bulging NECK: Supple. No lymphadenopathy CHEST: Clear to auscultation, breath sounds equal. No wheezing, rhonchi, rales, or stridor. No respiratory distress, speaks in full sentences. HEART: Regular rate and rhythm. No murmur heard. SKIN: Warm, dry, no rash. NEURO: Alert and oriented x3. PSYCH: Normal mood and affect Course Course Emergency Course: Patient is aware of diagnosis, understands and agrees to treatment plan. Anticipatory guidance given. Patient agrees to follow-up as directed and is aware of reasons to seek care at the emergency department. Portions of this record may have been created with voice recognition software Level of Care: Express Care Visit Vital Signs Vital signs: Vital Signs Temperature 97.3 F L 03/27/24 11:58 Pulse Rate 83 03/27/24 11:58 Respiratory Rate 16 03/27/24 11:58 Blood Pressure 140/77 03/27/24 11:58 Pulse Oximetry 99 03/27/24 11:58 Temperature 97.3 F L 03/27/24 11:58 Pulse Rate 83 03/27/24 11:58 Respiratory Rate 16 03/27/24 11:58 Blood Pressure 140/77 03/27/24 11:58 Pulse Oximetry 99 03/27/24 11:58 reviewed MDM - URI/Sore Throat MDM Narrative Medical decision making narrative: Discussed physical exam findings. Declined viral testing. Advised supportive measures and signs/symptoms to go to the ER. Pt is appropriate for outpt treatment and f/u. Differential Diagnosis Differential diagnosis: Likely upper respiratory infection, sinusitis and viral infection Discharge Plan Discharge Clinical Impression: Upper respiratory infection Patient Disposition: Home, Self-Care Condition: Stable Instructions: Upper Respiratory Infection (ED) Additional Instructions: Recommendations: Flonase spray and Zyrtec (or Claritin/Hemalatha) over the counter Cough syrup may cause drowsiness; avoid driving or take it at night time. Coricidin HBP if you have hypertension Tylenol 1000mg every 8 hours as needed for pain Symptomatic treatment includes: rest, fluids, and increase humidity of the air at home. Follow up with your primary care provider in 1 week. Go to the ER for worsening symptoms or concerns. Prescriptions: New methylprednisolone [Medrol (Ryan)] 4 mg tablets,dose pack See Rx Instructions .ROUTE .COMPLEX Qty: 21 0RF Rx Instructions: orally per package directions No Action valacyclovir 1 gram tablet 1,000 mg PO DAILY PRN lisinopril 40 mg tablet 40 mg PO DAILY Qty: 30 5RF estradiol-norethindrone acet 1-0.5 mg tablet PO L.acidophil-L.plantar-Bifido 7 PO vitamin E mixed PO cinnamon bark [Cinnamon] 500 mg capsule 500 mg PO DAILY Lehigh Bergamot 500 mg capsule 500 mg PO DAILY vitamin B complex Tablet 1 tablet PO DAILY nifedipine 60 mg tablet extended release See Rx Instructions .ROUTE .COMPLEX Qty: 90 3RF Dose Instruction: TAKE 60 MG BY MOUTH DAILY Rx Instructions: TAKE 60 MG BY MOUTH DAILY hydralazine 50 mg tablet 50 mg PO TID Qty: 270 3RF omeprazole 20 mg capsule,delayed release(DR/EC) See Rx Instructions .ROUTE .COMPLEX Qty: 180 2RF Dose Instruction: TAKE 1 CAPSULE BY MOUTH TWICE DAILY Rx Instructions: TAKE 1 CAPSULE BY MOUTH TWICE DAILY chlorthalidone 25 mg tablet 25 mg PO DAILY Qty: 90 3RF metoprolol succinate 200 mg tablet extended release 24 hr See Rx Instructions .ROUTE .COMPLEX Qty: 90 2RF Dose Instruction: TAKE 1 TABLET BY MOUTH EVERY MORNING Rx Instructions: TAKE 1 TABLET BY MOUTH EVERY MORNING metoprolol succinate 50 mg tablet extended release 24 hr See Rx Instructions .ROUTE .COMPLEX Qty: 90 2RF Dose Instruction: TAKE 1 TABLET BY MOUTH DAILY AT LUNCH Rx Instructions: TAKE 1 TABLET BY MOUTH DAILY AT LUNCH levothyroxine 100 mcg tablet See Rx Instructions .ROUTE .COMPLEX Qty: 90 3RF Dose Instruction: TAKE 1 TABLET BY MOUTH DAILY Rx Instructions: TAKE 1 TABLET BY MOUTH DAILY cyclobenzaprine 5 mg tablet See Rx Instructions .ROUTE .COMPLEX Qty: 30 0RF Dose Instruction: TAKE 1 TABLET BY MOUTH THREE TIMES DAILY NEEDED FOR MUSCLE SPASM Rx Instructions: TAKE 1 TABLET BY MOUTH THREE TIMES DAILY NEEDED FOR MUSCLE SPASM Follow-up/Referrals: Anson Montano MD [Primary Care Provider] - Time of Disposition: 12:28
== END 2024-03-27 12:45 | disposition home or self-care (01) ==
PROVIDERS: Emergency Provider Nurse Practitioner Family; PCP Emergency Medicine
DX: J06.9 Acute upper respiratory infection, unspecified (principal); K21.9 Gastro-esophageal reflux disease without esophagitis; I10 Essential (primary) hypertension; E03.9 Hypothyroidism, unspecified; G47.33 Obstructive sleep apnea (adult) (pediatric); Z99.89 Dependence on other enabling machines and devices; E55.9 Vitamin D deficiency, unspecified
CPT/HCPCS: 99213; G0463

== ENCOUNTER 2024-04-30 14:54 | Outpatient (CLI) | payer OTHER, SELFPAY ==
[2024-04-30 17:04] LABS: Alanine Aminotransferase 25 U/L (6-35); Albumin Level 4.3 g/dL (3.5-5.1); Alkaline Phosphatase 87 U/L (38-126); Anion Gap 10 mmol/L (4-12); Aspartate Amino Transferase 31 U/L (14-36); Bilirubin,Total 0.6 mg/dL (0.2-1.3); Blood Urea Nitrogen 18 mg/dL (7-17); Calcium 9.3 mg/dL (8.4-10.2); Carbon Dioxide 25 mmol/L (22-30); Chloride 101 mmol/L (98-107); Estimated Glomerular Filt Rate > 60; Glucose 123 mg/dL (65-110); Potassium 3.9 mmol/L (3.4-5.0); Sodium 136 mmol/L (137-145)
[2024-04-30 20:49] LABS: Vitamin D 25 Hydroxy 24.7 ng/mL
[2024-05-01 11:19] LABS: Hemoglobin A1C 6.6 % (<5.7)
== END 2024-04-30 14:55 | disposition home or self-care (01) ==
LOC: ANHLAB 14:55
PROVIDERS: PCP Emergency Medicine; Visit Provider Emergency Medicine
DX: E78.5 Hyperlipidemia, unspecified (principal); E11.9 Type 2 diabetes mellitus without complications; E03.9 Hypothyroidism, unspecified; E55.9 Vitamin D deficiency, unspecified
CPT/HCPCS: 36415; 80053; 82306; 83036; 84443

== ENCOUNTER 2024-08-06 00:58 | Day surgery (SDC) | payer OTHER, SELFPAY ==
[2024-07-31 14:55] VITALS: BMI 51.7
--- OUTSIDE RECORDS SUMMARY | 2024-08-06 01:08 | XMS_ITS | Clinical Summary ---
Author Organization [facility] Address [address] [place], [address] [address] Phone Care Team Providers Care Drawbridge Tender Name Role Phone Anson Montano MD Primary Care Provider [phone] Social History Tobacco Use Types Packs/Day Years Used Date Smoking Tobacco: Never Assessed Comments Unknown Sex and Gender Information Value Date Recorded Sex Assigned at Not on file Legal Sex Female 9:26 AM CDT Gender Identity Not on file Sexual Orientation Not on file Plan of Treatment Health Maintenance Due Date Last Done Comments Hepatitis C Virus (HCV) Screening 1967 TdaP Immunization 1967 Hepatitis B Immunization (1 of 3 - 19+ 3-dose series) 10/13/1986 Pap Smear 10/13/1988 Cervical Cancer Screening (CCS) 10/13/1997 HPV/Cotest 10/13/1997 Cologuard 10/13/2017 Immunochemical Fecal Occult Blood 10/13/2017 Mammogram 10/13/2017 Pneumococcal Immunization (5 0+ years) (1 of 1 - PCV) 10/13/2017 Zoster Immunization (1 of 2) 10/13/2017 Colonoscopy 05/09/2022 05/09/2019 Colorectal Cancer Screening 05/09/2022 Influenza Immunization (#1) 2023 SARS-COV-2 Immunization ( season) 2023 Respiratory Syncytial Virus (RSV) Immunization (Adult) (1 - 1-dose 75+ series) 10/13/2042 05/09/2019 Meningococcal Immunization (ACWY) Aged Out No longer eligible based on patient's age to complete this topic Pneumococcal Immunization Combined Aged Out No longer eligible based on patient's age to complete this topic Rotavirus Immunization Aged Out No lo nger eligible based on patient's age to complete this topic Procedures Procedure Name Priority Date/Time Associated Diagnosis Comments COLONOSCOPY Routine 05/09/2019 from Last 3 Months or Most Recently Relevant to Health Maintenance Results * COLONOSCOPY (05/09/2019) Roger Ministerio Stacy DO PROCEDURE/MINOR SURGICAL ORDERA BLES Final Result from Last 3 Months or Most Recently Relevant to Health [place] [address] [facility] [place] [address] Care Teams Drawbridge Tender Relationship Specialty Start Date End Date Anson Montano MD [address] [place] [id number] PCP - General Internal Medicine 05/14/19
--- OUTSIDE RECORDS SUMMARY | 2024-08-06 01:08 | XMS_ITS | Referral Summary ---
Author Organization [facility] Address [address] [place] [id number] Care Team Providers Care Hand Etcher Helper Name Role Phone Anson Montano MD Primary Care Provide r Allergies No known active allergies Medications valACYclovir (VALTREX) 1 gram tablet Take 1 tablet (1,000 mg total) by mouth daily 06/22/2021 Active omeprazole (PriLOSEC) 20 mg capsule 07/07/2021 Active norethindrone ac-eth estradioL (MICROGESTIN 05/13) 1-20 mg-mcg per tablet 06/28/2021 Active NIFEdipine (PROCARDIA XL/ADALAT CC) 60 mg 24 hr tablet Take 60 mg by mouth daily 12/09/2021 Active metoprolol XL (TOPROL-XL) 200 mg extended release tablet In am 08/22/2021 Acti ve metoprolol XL (TOPROL-XL) 50 mg extended release tablet In pm 09/03/2021 Acti ve lysine 1,000 mg tablet Take by mouth Active lisinopril-hydr oCHLOROthiazide (ZESTORETIC) 20-12.5 mg per tablet Take 2 tablets by mouth daily 12/08/2021 Active levothyroxine (SYNTHROID) 100 mcg tablet 08/06/2021 Active hydrALAZINE (APRESOLINE) 10 mg tablet Take 20 mg by mouth 3 (three) times a day 09/03/2021 Active cyclobenzaprine (FLEXERIL) 5 mg tablet Take 1 tablet (5 mg total) by mouth 3 (three) times a day as needed 06/21/2021 Active Ca carb-Ca gluc-Mg ox-Mg gluco (Calcium Magnesium) 500 mg calcium -250 mg tablet Take by mouth Active vitamin B complex tablet extended release Take by mouth Active hydrALAZINE (APRESOLINE) 50 mg tablet Take 1 tablet (50 mg total) by mouth 3 (three) times a day 11/05/2022 Active Active Problems Problem Noted Date Diagnosed Date 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 Remains asymptomatic. 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 Will need continued lifelong surveillance, follow-up in [address] abdomen and pelvis. Assessment & Plan (06/22/2022 9:17 AM PERFORMANCE TEST ENGINEER): Stable 1.8-2 cm right renal artery aneurysms, densely calcified. Discussed the importance of ongoing surveillance, will follow-up with repeat CT abdomen pelvis in 6 months. Assessment & Plan (12/22/2021 10:59 AM CDT): 2 cm right renal artery aneurysm. I discussed management options for renal artery aneurysm the patient including the recommendation for lifelong surveillance until 3 cm with surgical intervention recommended at 3 cm. Prior recommendations were 2 cm which have now been changed. Continue good blood pressure control. Recommend ASA and statin therapy. Will follow-up in [address] abdomen pelvis for further evaluation. Essential hypertension 09/15/2021 Assessment & Plan (06/22/2022 9:17 AM PERFORMANCE TEST ENGINEER): Stable continue hydralazine 10 mg. Assessment & Plan (12/22/2021 10:59 AM CDT): Hydralazine and lisinopril Social History Tobacco Use Types Packs/Day Years Used Date Smoking Tobacco: Never Smokeless Tobacco: Never Tobacco Cessation:Counseling Given: No Personal Safety Answer Date Recorded Getting School Help Needed Not on file 04/28 Comments No Sex and Gender Information Value Date Recorded Sex Assigned at Not on file Legal Sex Female 2:38 PM CDT Gender Identity Not on file Sexual Orientation Not on file Last Filed Vital Signs Vital Sign Reading Time Taken Comments Blood Pressure 170/95 01/17/2024 8:29 AM CDT Pulse 86 01/17/2024 8:29 AM CDT Temperature - - Respiratory Rate - - Oxygen Saturation 97% 01/17/2024 8:29 AM CDT Inhaled Oxygen Concentration - - Weight 158.8 kg (350 lb) 01/04/2023 9:05 AM CDT Height 177.8 cm (5' 10 ) 01/04/2023 9:05 AM CDT Body Mass Index 50.22 01/04/2023 9:05 AM CDT Plan of Treatment Not on file Insurance Member Subscriber Plan / Payer (Ef fective 2012-Present) Name:Evangelina Garnica Relation to Subscriber:Self Name:Evangelina Garnica Payer ID:[id number] (NAIC) Type:[facility] H[facility]/PPO Address: [address] [facility] Care Teams Hand Etcher Helper Relationship Specialty Start Date End Date Anson Montano MD [address] [place] [address] PCP - General Emergency Medicine 12/22/21
--- OUTSIDE RECORDS SUMMARY | 2024-08-06 01:08 | XMS_ITS | Clinical Summary ---
Author Organization [facility] Address [address] [place] [id number] Care Team Providers Care Outside Plant Supervisor Name Role Phone Anson Montano MD Primary [...] pelvis. Assessment & Plan (06/22/2022 9:17 AM OPERATIONS TRAINER): Stable 1.8-2 cm right renal artery aneurysms, [...] 09/15/2021 Assessment & Plan (06/22/2022 9:17 AM OPERATIONS TRAINER): Stable continue hydralazine 10 mg. Assessment & Plan (12/22/2021 10:59 AM CDT): Hydralazine and lisinopril Surgical History Surgery Date Site/Laterality Comments GALLBLADDER SURGERY CARPAL TUNNEL RELEASE Medical History Medical History Date Comments Hyperthyroidism Endometriosis Acid reflux Family History Medical History Relation Name Comments Stroke Paternal Grandfather Stroke Paternal Grandmother Relation Name Status Comments Paternal Grandfather Paternal Grandmother Social History Tobacco Use Types Packs/Day Years Used Date Smoking Tobacco: Never Smokeless Tobacco: Never Tobacco Cessation:Counseling Given: No Personal Safety Answer Date Recorded Getting School Help Needed Not on file 04/28 Comments No Sex and Gender Information Value Date Recorded Sex Assigned at Not on file Legal Sex Female 2:38 PM CDT Gender Identity Not on file Sexual Orientation Not on file Obstetrics History Last Filed Vital Signs Vital Sign Reading [...] 01/04/2023 9:05 AM CDT Plan of Treatment Health Maintenance Due Date Last Done Comments Breast Cancer Screening-Mammogram 1965 Cervical Cancer Screening 1967 Colon Cancer Screening-Colonoscopy 1967 Depression Screening 1967 Hepatitis C Screening 1967 DTaP/Tdap/Td Vaccine (1 - Tdap) 10/13/1978 Hepatitis B Screening 10/13/1985 Regular Well Visit/Exam 18-64 10/13/1985 Zoster Vaccine (1 of 2) 10/13/2017 Covid-19 Vaccine (4 - 2023-2 5 season) 2023 01/29/2021, 05/01/2020, 04/10/2020 Influenza Vaccine (Season Ended) 2024 Pneumococcal vaccine <65 Aged Out No longer eligible based on patient's age to complete this topic Insurance [facility] Care Teams Outside Plant Supervisor Relationship Specialty Start Date End Date Anson Montano MD [address] [place] [address] PCP - General Emergency Medicine 12/22/21
--- OUTSIDE RECORDS SUMMARY | 2024-08-06 01:08 | XMS_ITS | Clinical Summary ---
Author Organization [facility] Address [address] [place] [phone] Phone Care Team Providers Care Broach Setter Name Role Phone Anson Montano MD Primary Care Provider [phone] Allergies No known active allergies Medications cyclobenzaprine (FLEXERIL) 5 MG tablet Take 5 mg by mouth 3 (three) times a day if needed for muscle spams 06/21/2021 Active levothyroxine (SYNTHROID) 100 MCG tablet 08/06/2021 Active metoprolol succinate XL (TOPROL-XL) 200 MG 24 hr tablet In am 08/22/2021 Act miguelina metoprolol succinate XL (TOPROL-XL) 50 MG 24 hr tablet In pm 09/03/2021 Act miguelina norethindrone-e thinyl estradiol (MICROGESTIN 05/13) 1-20 MG-MCG per tablet 06/28/2021 Active omeprazole (PriLOSEC) [address] capsule 07/07/2021 Activ e valACYclovir (VALTREX) 1 g tablet Take 1,000 mg by mouth 1 (one) time each day prn 06/22/2021 Active Lysine HCl 1000 MG tablet Take by mouth Active Magnesium 250 MG tablet Take by mouth Active lisinopril-hydr oCHLOROthiazide (PRINZIDE) 20-12.5 MG per tablet Take 2 tablets by mouth 1 (one) time each day 180 tablet 3 12/08/2021 Active NIFEdipine CC (ADALAT CC) 60 MG 24 hr tablet Take 1 tablet (60 mg total) by mouth 1 (one) time each day 30 tablet 5 12/09/2021 Active Vitamins-Lipotr opics (Complex H-329-Tikjgwem) tablet controlled-rele ase Take by mouth Active hydrALAZINE (APRESOLINE) 50 MG tablet Take 1 tablet (50 mg total) by mouth 3 (three) times a day 90 tablet 11 01/24/2022 Active Active Problems Problem Noted Date Diagnosed Date 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 I [...] pelvis for further evaluation. Essential hypertension 09/15/2021 Family History Medical History Relation Comments Hypertension Neg Hx Social History Tobacco Use Types Packs/Day Years Used Date Smoking Tobacco: Never Smokeless Tobacco: Never Alcohol Use Standard Drinks/Week Comments Yes 0 (1 standard drink = 0.6 oz pur e alcohol) rare Comments Unknown Sex and Gender Information Value Date Recorded Sex Assigned at Not on file Legal Sex Female 11:55 AM MDT Gender Identity Not on file Sexual Orientation Not on file Last Filed Vital Signs Vital Sign Reading Time Taken Comments Blood Pressure 148/70 01/24/2022 2:09 PM CDT Pulse 72 01/24/2022 2:09 PM CDT Temperature 36.8 C (98.3 F) 01/24/2022 2:09 PM CDT Respiratory Rate - - Oxygen Saturation - - Inhaled Oxygen Concentration - - Weight 158 kg (348 lb) 01/24/2022 2:09 PM CDT Height 180.3 cm (5' 11 ) 01/24/2022 2:09 PM CDT Body Mass Index 48.54 01/24/2022 2:09 PM CDT Plan of Treatment Health Maintenance Due Date Last Done Comments Influenza Vaccine (Season Ended) 2024 Insurance [facility] Care Teams Broach Setter Relationship Specialty Start Date End Date Anson Montano MD [address] [facility] [address] [place] [id number] PCP - General Internal Medicine 08/16/21
[2024-08-06 06:16] VITALS: BP 140/67; PULSE 76; RESP 18; TEMP 36.6; O2SAT 98
[2024-08-06] MEDS: LACTATED RINGERS 1,000 ML 150 ML IV CONT (06:28)
--- NOTE | 2024-08-06 06:40 | P.PNAN_ITS ---
Anes - Initial Pre Proc Eval Procedure: Operation Date: 08/06/24 07:30 Proposed Procedures p Esophagogastroduodenoscopy & Colonoscopy - Rober Macias DO Date/Time: 08/06/24 06:40 Surgeon: Rober Macias DO Pre Op Diagnosis: Change in stools & GERD Patient Data Age: 58 Gender: F Height: 1.78 m Weight: 159.7 kg Last Vital Signs Temp 36.6 C 08/06/24 06:16 Pulse 76 08/06/24 06:16 Resp 18 08/06/24 06:16 BP 140/67 08/06/24 06:16 Pulse Ox 98 08/06/24 06:16 O2 Del Method Room Air 08/06/24 06:16 Allergies Allergy/AdvReac Type Severity Reaction Status Date / Time meperidine Allergy Intermediate Nausea Verified 08/06/24 06:14 metoclopramide Allergy Intermediate Nausea and Verified 08/06/24 06:14 Vomiting Home Medications ?Medication ?Instructions ?Recorded ?Confirmed ?Type vitamin B complex 1 tablet PO DAILY 05/02/19 08/06/24 History L.acidophil-L.plantar-Bifido 7 1 cap PO DAILY 11/21/19 08/06/24 History vitamin E mixed PO 11/21/19 02/27/24 History valacyclovir 1 gram tablet 1,000 mg PO DAILY PRN outbreak 07/12/22 07/31/24 History estradiol-norethindrone acet 1 1 tablet PO DAILY 02/21/24 08/06/24 History mg-0.5 mg tablet chlorthalidone 25 mg tablet 25 mg PO DAILY #90 tabs 04/30/24 08/06/24 Rx hydralazine 50 mg tablet 50 mg PO TID #270 tabs 04/30/24 08/06/24 Rx levothyroxine 100 mcg tablet See Rx Instructions .Route 04/30/24 08/06/24 Rx .COMPLEX #90 tabs lisinopril 40 mg tablet See Rx Instructions .Route 04/30/24 08/06/24 Rx .COMPLEX #90 tabs metoprolol succinate 200 mg See Rx Instructions .Route 04/30/24 08/06/24 Rx tablet,extended release 24 hr .COMPLEX #90 tabs metoprolol succinate 50 mg See Rx Instructions .Route 04/30/24 08/06/24 Rx tablet,extended release 24 hr .COMPLEX #90 tabs omeprazole 20 mg capsule,delayed See Rx Instructions .Route 04/30/24 08/06/24 Rx release .COMPLEX #180 caps CPAP machine #1 ea 05/21/24 Rx bergamot extract 500 mg capsule 1,000 mg PO DAILY 06/26/24 08/06/24 History ([place] Bergamot) nifedipine 60 mg tablet,extended 60 mg PO QHS 06/26/24 08/06/24 History release tirzepatide 2.5 mg/0.5 mL 2.5 mg (0.5 mL) subcut WEEKLY #2 mL 06/26/24 07/31/24 Rx subcutaneous pen injector (Mounjaro) cyclobenzaprine 5 mg tablet See Rx Instructions .Route 07/10/24 07/31/24 Rx .COMPLEX #30 tabs magnesium 500 mg tablet 500 mg PO DAILY 07/31/24 08/06/24 History tumeric 1,000 mg PO DAILY 07/31/24 08/06/24 History Patient hx anesthesia problems: none Family hx anesthesia problems: none Results Review: All pre-operative results and documents have been reviewed as part of the pre- operative evaluation. [facility] Past Medical History Medical History History of colon polyps Positive colorectal cancer screening using Cologuard test Suspected COVID-19 virus infection Sinusitis Strain of right shoulder Fatigue Positive colorectal cancer screening using Cologuard test Vitamin D deficiency Sore throat Pure hyperglyceridemia KEITH on CPAP Gastro-esophageal reflux disease without esophagitis Elevated lipids Sleep apnea Vision abnormalities Contusion of left forearm (11/12/19) Sprain of right hand (11/12/19) Contusion of left knee (11/12/19) Cervical endometriosis GERD (gastroesophageal reflux disease) Hypothyroid Morbid obesity KEITH (obstructive sleep apnea) Hypertension Surgical History Surgical History Hx of esophagogastroduodenoscopy S/P removal of right ovary Hx laparoscopic cholecystectomy Hx of carpal tunnel repair Hx of section Family History Family History Father Hypertension Mother Hypertension Sibling Family history of gastrointestinal disorder Diabetes mellitus Hypertension Grandparent Acute myocardial infarction Grandparent Multiple myeloma Other Cerebrovascular accident Family history of cardiovascular disease Family history of kidney disease Social History Social History Smoking status: Never smoker Second hand tobacco smoke exposure: No Alcohol intake: current Alcohol use details: rarely Substance use: never Substance use type: does not use Do You Feel Safe in your Home?: Yes Lack of Transportation: No Lack of Food: Never True Current Housing: Decline to Answer Concerned About Future Housing: Decline to Answer Difficulty Paying Gas/Electric Bills: Decline to Answer Difficulty Paying for Meds: Decline to Answer Currently Unemployed: Decline to Answer Education: Decline to Answer Difficulty w/ Childcare or Family Care: Decline to Answer Living arrangements: with family Gender identity (if verbalized by the patient): Female Spiritual care concerns: No Agree to blood products: Yes Anes - Eval Final PreProcedure Day of Procedure 08/06/24 06:40 Patient weight: morbidly obese Heart: regular rate and rhythm Lungs: clear to auscultation Airway: Mallampati scale class II Neurological: alert and oriented Last oral intake: >/= 8 hours ASA classification: III Emergent: no Anesthetic plan: proceed Anesthesia type and monitoring: general GIVS and standard monitoring Results Review: All pre-operative results and documents have been reviewed as part of the pre- operative evaluation. Informed Consent: The patient's anesthetic plan and its attendant risks and benefits were discussed with the patient/family/POA. Questions were solicited and answers provided to the satisfaction of the patient/family/POA.
--- NOTE | 2024-08-06 07:33 | PM.IMHP ---
H&P: HPI History of Present Illness Date/Time: 08/06/24 07:33 Chief Complaint: GERD, hx of colon polyps Narrative: This is a 58-year-old woman who presents for EGD and colonoscopy. She has a history of GERD and prior history of stomach polyps. She also had a colonoscopy 5 years ago and a couple polyps were removed at that time. She denies any hematochezia or melena. She denies family history of colon cancer. Review of Systems Review of Systems: All systems reviewed & are unremarkable except as noted in HPI and below Constitutional: Constitutional: Denies chills, Denies fever(s), Denies headache(s) and Denies weight loss Eyes: Eyes: Denies change in vision ENT: Denies dizziness, Denies headache(s), Denies neck mass and Denies throat swelling Cardiovascular: Cardiovascular: Denies chest pain, Denies lightheadedness and Denies dyspnea Respiratory: Respiratory: Denies cough, Denies dyspnea and Denies wheezing Gastrointestinal: Gastrointestinal: Denies abdominal pain, Denies change in bowel habits, Denies nausea and Denies vomiting Genitourinary: Genitourinary: Denies hematuria and Denies dysuria Musculoskeletal: Musculoskeletal: Reports as per HPI Integumentary/Breasts: Skin/Breast: Reports as per HPI Neurologic: Denies dizziness and Denies headache(s) Allergic/Immunologic: Allergic/Immunologic: Denies throat swelling and Denies wheezing PMF Past Medical History Medical History (Updated 08/06/24 @ 07:34 by Rober Macias DO) History of colon polyps Positive colorectal cancer screening using Cologuard test Suspected COVID-19 virus infection Sinusitis Strain of right shoulder Fatigue Positive colorectal cancer screening using Cologuard test Vitamin D deficiency Sore throat Pure hyperglyceridemia KEITH on CPAP Gastro-esophageal reflux disease without esophagitis Elevated lipids Sleep apnea Vision abnormalities Contusion of left forearm (11/12/19) Sprain of right hand (11/12/19) Contusion of left knee (11/12/19) Cervical endometriosis GERD (gastroesophageal reflux disease) Hypothyroid Morbid obesity KEITH (obstructive sleep apnea) Hypertension Surgical History Surgical History Hx of esophagogastroduodenoscopy S/P removal of right ovary Hx laparoscopic cholecystectomy Hx of carpal tunnel repair Hx of section Family History Family History Father Hypertension Mother Hypertension Sibling Family history of gastrointestinal disorder Diabetes mellitus Hypertension Grandparent Acute myocardial infarction Grandparent Multiple myeloma Other Cerebrovascular accident Family history of cardiovascular disease Family history of kidney disease Social History Social History Smoking status: Never smoker Second hand tobacco smoke exposure: No Alcohol intake: current Alcohol use details: rarely Substance use: never Substance use type: does not use Do You Feel Safe in your Home?: Yes Lack of Transportation: No Lack of Food: Never True Current Housing: Decline to Answer Concerned About Future Housing: Decline to Answer Difficulty Paying Gas/Electric Bills: Decline to Answer Difficulty Paying for Meds: Decline to Answer Currently Unemployed: Decline to Answer Education: Decline to Answer Difficulty w/ Childcare or Family Care: Decline to Answer Living arrangements: with family Gender identity (if verbalized by the patient): Female Spiritual care concerns: No Agree to blood products: Yes Meds Home Medications and Allergies Home Medications ?Medication ?Instructions ?Recorded ?Confirmed ?Type vitamin B complex 1 tablet PO DAILY 05/02/19 08/06/24 History L.acidophil-L.plantar-Bifido 7 1 cap PO DAILY 11/21/19 08/06/24 History vitamin E mixed PO 11/21/19 02/27/24 History valacyclovir 1 gram tablet 1,000 mg PO DAILY PRN outbreak 07/12/22 07/31/24 History estradiol-norethindrone acet 1 1 tablet PO DAILY 02/21/24 08/06/24 History mg-0.5 mg tablet chlorthalidone 25 mg tablet 25 mg PO DAILY #90 tabs 04/30/24 08/06/24 Rx hydralazine 50 mg tablet 50 mg PO TID #270 tabs 04/30/24 08/06/24 Rx levothyroxine 100 mcg tablet See Rx Instructions .Route 04/30/24 08/06/24 Rx .COMPLEX #90 tabs lisinopril 40 mg tablet See Rx Instructions .Route 04/30/24 08/06/24 Rx .COMPLEX #90 tabs metoprolol succinate 200 mg See Rx Instructions .Route 04/30/24 08/06/24 Rx tablet,extended release 24 hr .COMPLEX #90 tabs metoprolol succinate 50 mg See Rx Instructions .Route 04/30/24 08/06/24 Rx tablet,extended release 24 hr .COMPLEX #90 tabs omeprazole 20 mg capsule,delayed See Rx Instructions .Route 04/30/24 08/06/24 Rx release .COMPLEX #180 caps CPAP machine #1 ea 05/21/24 Rx bergamot extract 500 mg capsule 1,000 mg PO DAILY 06/26/24 08/06/24 History ([place] Bergamot) nifedipine 60 mg tablet,extended 60 mg PO QHS 06/26/24 08/06/24 History release tirzepatide 2.5 mg/0.5 mL 2.5 mg (0.5 mL) subcut WEEKLY #2 mL 06/26/24 07/31/24 Rx subcutaneous pen injector (Shivani) cyclobenzaprine 5 mg tablet See Rx Instructions .Route 07/10/24 07/31/24 Rx .COMPLEX #30 tabs magnesium 500 mg tablet 500 mg PO DAILY 07/31/24 08/06/24 History tumeric 1,000 mg PO DAILY 07/31/24 08/06/24 History Allergies Allergy/AdvReac Type Severity Reaction Status Date / Time meperidine Allergy Intermediate Nausea Verified 08/06/24 06:14 metoclopramide Allergy Intermediate Nausea and Verified 08/06/24 06:14 Vomiting Vital Signs Vital Signs - 24 hr 08/06/24 06:16 Temperature 97.8 F Pulse Rate 76 Respiratory Rate 18 Blood Pressure 140/67 Pulse Oximetry 98 Oxygen Delivery Room Air Exam Const: General: no acute distress and alert Orientation/consciousness: patient oriented x3 HENMT: Head: normocephalic and atraumatic Ears: hearing grossly normal bilaterally Face/Nose/Sinus: Normal nares present Mouth: Yes Normal oral and palatal mucosa present Eyes: Periorbital: periorbital findings normal Sclera: sclerae normal EOM: EOMs intact bilaterally Neck: Neck: normal visual inspection, no lymphadenopathy and trachea midline Chest: Chest palpation & inspection: normal inspection of the chest Resp: Effort & Inspection: normal respiratory effort Auscultation: clear to auscultation bilaterally Cardio: Jugular venous distension: no JVD Rate: regular rate Rhythm: regular rhythm Heart sounds: S1 normal heart sound present and S2 normal heart sound present Peripheral pulses: Peripheral pulses 2+ throughout GI: Inspection: normal to inspection GI Palp: Yes Soft to palpation, No Tenderness to palpation present (GI), No Guarding due to palpation present (GI) and No Rebound tenderness present Percussion: Yes normal to percussion Auscultation: normal bowel sounds : General: Yes no CVA tenderness Back/Spine/Pelvis: Back: no CVA tenderness Neuro: General: patient oriented x3, no focal motor deficits and CN's II-XI intact bilaterally Cognition (Neuro): normal cognition Speech: normal speech Motor exam (neuro): 5/5 motor strength present throughout Extrem: General: capillary refill normal and no clubbing, cyanosis or edema Assessment and Plan Assessment and plan (1) GERD (gastroesophageal reflux disease): Qualifiers: Esophagitis presence: without esophagitis Qualified Code(s): K21.9 - Gastro-esophageal reflux disease without esophagitis Code(s): K21.9 - Gastro-esophageal reflux disease without esophagitis Status: Acute Assessment and Plan: I have recommended EGD and colonoscopy. I have discussed the procedure, risks, benefits, and alternatives. Questions were answered. Patient is agreeable to proceed. (2) History of colon polyps: Code(s): Z86.0100 - Personal history of colon polyps, unspecified Status: Acute
--- NOTE | 2024-08-06 07:46 | SUR.OPER ---
EGD [id number]. Colonoscopy start time 745.
[2024-08-06 08:05] VITALS: BP 95/50; PULSE 63; RESP 15; O2SAT 96
[2024-08-06 08:15] VITALS: BP 106/56; PULSE 61; RESP 18; O2SAT 98
[2024-08-06 08:25] VITALS: BP 126/76; PULSE 61; RESP 15; O2SAT 99
== END 2024-08-06 09:40 | disposition home or self-care (01) ==
PROVIDERS: PCP Emergency Medicine; Visit Provider Surgery
PROC: 0DJ08ZZ Inspection of Upper Intestinal Tract, Via Natural or Artificial Opening Endoscopic (ICD-10-PCS; CPT 45378; principal; 2024-08-06 07:30)
DX: Z12.11 Encounter for screening for malignant neoplasm of colon (principal); Z86.0100 Personal history of colon polyps, unspecified; K21.9 Gastro-esophageal reflux disease without esophagitis; K31.7 Polyp of stomach and duodenum; E66.01 Morbid (severe) obesity due to excess calories; Z68.43 Body mass index [BMI] 50.0-59.9, adult
CPT/HCPCS: 45378; 88305; 88342; J2704; J7120

== ENCOUNTER 2024-12-24 08:35 | Outpatient (CLI) | payer OTHER, SELFPAY ==
--- OUTSIDE RECORDS SUMMARY | 2024-12-24 08:39 | XMS_ITS | Clinical Summary ---
Author Organization [facility] Address [address] [place] [phone] Care Team Providers Care Bar Useful Or Busser Name Role Phone Anson Montano MD Primary [...] pelvis. 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 Assessment & Plan (12/22/2021 10:59 AM CDT): Hydralazine and lisinopril Encounters Date Type Department Care Team Description 12/02/2024 Telephone [facility] Vascular and Vein Surgery [address] [place] [address] [place] [phone] Joseline Carroll MA 12/02/2024 Orders Only [facility] [address] [place] [address] [address] [place] [address] Stan Neff MD from Last 3 Months Surgical History Surgery Date Site/Laterality Comments GALLBLADDER [...] 9:05 AM CDT Height 177.8 cm (5' 10) 01/04/2023 9:05 AM CDT Body Mass Index [...] Vaccine (1 of 2) 10/13/2017 Covid-19 Vaccine (2023-2 5 season) 2023 01/29/2021, 05/01/2020, 04/10/2020 Influenza Vaccine (#1) 2024 Pneumococcal vaccine <65 Aged Out No longer eligible based on patient's age to complete this topic Insurance [facility] H[facility]/PPO Address: [address] [address] [facility] H[facility]/PPO Address: [place] [id number] Care Teams Bar Useful Or Busser Relationship Specialty Start Date End Date Anson Montano MD [address] [address] PCP - General Emergency Medicine 12/22/21
--- OUTSIDE RECORDS SUMMARY | 2024-12-24 08:39 | XMS_ITS | Clinical Summary ---
Author Organization [facility] Address [address] [place] [phone] Phone Care Team Providers Care Powder Hand Name Role Phone Anson Montano MD Primary Care Provider [phone] Allergies No known active allergies Medications cyclobenzaprine [...] tablet 5 12/09/2021 Active Vitamins-Lipotr opics (Complex [id number]) tablet controlled-rele ase Take by mouth Active [...] 2:09 PM CDT Height 180.3 cm (5' 11) 01/24/2022 2:09 PM CDT Body Mass Index 48.54 01/24/2022 2:09 PM CDT Plan of Treatment Health Maintenance Due Date Last Done Comments Influenza Vaccine (#1) 2024 Insurance [facility] Care Teams Powder Hand Relationship Specialty Start Date End Date Anson Montano MD [address] [facility] [address] [place] [phone] PCP - General Internal Medicine 08/16/21
--- OUTSIDE RECORDS SUMMARY | 2024-12-24 08:39 | XMS_ITS | Clinical Summary ---
Author Organization [facility] Address [address] [address] Phone Care Team Providers Care Manufacturing Quality Technician Name Role Phone Anson Montano MD Primary Care Provider [phone] Social History Tobacco Use Types Packs/Day Years [...] Cancer Screening (CCS) 10/13/1997 HPV/Cotest 10/13/1997 Cologuard 10/13/2012 Immunochemical Fecal Occult Blood 10/13/2012 Pneumococcal Immunization (5 0+ years) (1 of 1 - PCV) 10/13/2017 Zoster Immunization (1 of 2) 10/13/2017 Colonoscopy 05/09/2022 05/09/2019 Colorectal Cancer Screening 05/09/2022 SARS-COV-2 Immunization ( - season) 2023 Influenza Immunization (#1) 2024 Respiratory Syncytial Virus (RSV) Immunization (Adult) (1 - 1-dose 75+ series) 10/13/2042 Human Papillomavirus (HPV) Immunization Aged Out No longer eligible b ased on patient's age to complete this topic Meningococcal Immunization (ACWY) Aged Out No longer eligible based on patient's age to complete this topic Rotavirus Immunization Aged Out No lo nger eligible based on patient's age to complete this topic Procedures Procedure Name Priority Date/Time Associated Diagnosis Comments COLONOSCOPY Routine 05/09/2019 from Last 3 Months or Most Recently Relevant to Health Maintenance Results * COLONOSCOPY (05/09/2019) Roger Kumar DO PROCEDURE/MINOR SURGICAL ORDERA BLES Final Result from Last 3 Months or Most Recently Relevant to Health Maintenance Insurance [facility] Care Teams Manufacturing Quality Technician Relationship Specialty Start Date End Date Anson Montano MD [address] [place] [address] PCP - General Internal Medicine 05/14/19
[2024-12-24 09:47] LABS: Cholesterol 211 mg/dL (0-200); HDL Direct 31 mg/dL; Triglycerides 278 mg/dL (<150)
[2024-12-24 10:17] LABS: Hemoglobin A1C 6.2 % (<5.7)
[2024-12-24 10:18] LABS: MALB Creatinine Ratio < 6.1 mg/g (0-30)
== END 2024-12-24 08:36 | disposition home or self-care (01) ==
LOC: ANHLAB 08:36
PROVIDERS: PCP Emergency Medicine; Visit Provider Emergency Medicine
DX: E55.9 Vitamin D deficiency, unspecified (principal); E11.9 Type 2 diabetes mellitus without complications; E78.5 Hyperlipidemia, unspecified
CPT/HCPCS: 36415; 80061; 82043; 82306; 83036

== ENCOUNTER 2024-12-30 08:08 | Outpatient (CLI) | payer OTHER, SELFPAY ==
--- NOTE | ~2024-12-30 | CT_ITS ---
EXAMINATION: CTA abdomen pelvis DATE: 12/30/2024 09:07 INDICATION: Aneurysm of renal artery. TECHNIQUE: Computed tomographic angiography (CTA) of the abdomen and pelvis was performed with 100 mL Omnipaque-350 intravenous contrast. Automated exposure control and iterative reconstruction technique were employed. The dose-length product was 1742.51 mGy-cm. Maximum intensity projection 3D-reconstructions of the aorta and other arteries were constructed by the technologist on a separate workstation. COMPARISON: CT 01/09/2024, 12/03/21 FINDINGS: The visualized portions of the lung bases demonstrate mild atelectasis. No pleural effusion. Calcified left hilar and mediastinal lymph nodes are consistent with old granulomatous disease. Cardiomegaly is noted. No pericardial effusion. The liver is normal. Calcifications in the spleen are co nsistent with old granulomatous disease. There are changes of cholecystectomy. The pancreas, adrenal glands, and kidneys are normal. 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 There is no significant stenosis of celiac axis, superior mesenteric artery, the renal arteries, or inferior mesenteric artery. There are no dilated loops of bowel. The appendix is normal. There are no pathologically enlarged lymph nodes. There is no free intraperitoneal fluid. There is moderate lumbar spondylosis. There are bridging endplate osteophytes at multiple levels in the thoracic spine, consistent with diffuse idiopathic skeletal hyperostosis (DISH). 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 Reviewed, dictated and finalized at location E.
--- OUTSIDE RECORDS SUMMARY | 2024-12-30 08:26 | XMS_ITS | Clinical Summary ---
Author Organization [facility] Address [address] [place] [phone] Phone Care Team Providers Care School Admissions Representative Name Role Phone Anson Montano MD Primary Care Provider [phone] Allergies No known active allergies Medications cyclobenzaprine [...] tablet 5 12/09/2021 Active Vitamins-Lipotr opics (Complex [id number]) tablet controlled-rele ase Take by mouth Active [...] Done Comments Influenza Vaccine (#1) 2024 Insurance [facility] Care Teams School Admissions Representative Relationship Specialty Start Date End Date Anson Montano MD [address] [facility] [address] [place] [phone] PCP - General Internal Medicine 08/16/21
--- OUTSIDE RECORDS SUMMARY | 2024-12-30 08:26 | XMS_ITS | Clinical Summary ---
Author Organization [facility] Address [address] [address] Phone Care Team Providers Care Warble Saw Operator Name Role Phone Anson Montano MD Primary Care Provider [phone] Social History Tobacco Use Types Packs/Day Years [...] Most Recently Relevant to Health Maintenance Insurance [facility] Care Teams Warble Saw Operator Relationship Specialty Start Date End Date Anson Montano MD [address] [place] [address] PCP - General Internal Medicine 05/14/19
--- OUTSIDE RECORDS SUMMARY | 2024-12-30 08:26 | XMS_ITS | Clinical Summary ---
Author Organization [facility] Address [address] [place] [phone] Care Team Providers Care Print Controller Name Role Phone Anson Montano MD Primary [...] pelvis. 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 Assessment & Plan (12/22/2021 10:59 AM CDT): Hydralazine and lisinopril Encounters Date Type Department Care Team Description 12/02/2024 Telephone [facility] Vascular and Vein Surgery [address] [place] [address] [place] [phone] Joseline Carroll MA 12/02/2024 Orders Only [facility] Surgery [address] [place] [address] [address] [place] [address] Stan Neff MD from Last 3 Months [...] patient's age to complete this topic Insurance [facility] Member Subscriber Plan / Payer (Ef fective 2012-Present) Name:Evangelina Garnica Relation to Subscriber:Self Name:Evangelina Garnica Louis Payer ID:[id number] (NAIC) Type:[facility] HMO/PPO Address: [place] [id number] Care Teams Print Controller Relationship Specialty Start Date End Date Anson Montano MD [address] [place] [address] PCP - General Emergency Medicine 12/22/21
[2024-12-30 08:56] LABS: Estimated Glomerular Filt Rate > 60
[2024-12-30 09:38] LABS: Alanine Aminotransferase 30 U/L (6-35); Albumin Level 4.2 g/dL (3.5-5.1); Alkaline Phosphatase 113 U/L (38-126); Anion Gap 13 mmol/L (4-12); Aspartate Amino Transferase 33 U/L (14-36); Bilirubin,Total 0.4 mg/dL (0.2-1.3); Blood Urea Nitrogen 16 mg/dL (7-17); Calcium 9.4 mg/dL (8.4-10.2); Carbon Dioxide 25 mmol/L (22-30); Chloride 101 mmol/L (98-107); Estimated Glomerular Filt Rate > 60; Glucose 116 mg/dL (65-110); Sodium 139 mmol/L (137-145); Total Protein 7.5 g/dL (6.3-8.2)
[2024-12-30 09:48] LABS: Potassium 3.2 mmol/L (3.4-5.0)
[2024-12-30 10:50] LABS: Vitamin B12 272.0 pg/mL (239-931)
== END 2024-12-30 08:09 | disposition home or self-care (01) ==
LOC: ANHIMG 08:10
PROVIDERS: PCP Emergency Medicine; Visit Provider Surgery Vascular Surgery
DX: I72.2 Aneurysm of renal artery (principal); E78.5 Hyperlipidemia, unspecified; D51.0 Vitamin B12 deficiency anemia due to intrinsic factor deficiency
CPT/HCPCS: 36415; 74174; 80053; 82607; 82746; Q9967

== ENCOUNTER 2025-01-10 15:04 | Outpatient (CLI) | payer OTHER, SELFPAY ==
--- OUTSIDE RECORDS SUMMARY | 2024-12-30 08:45 | XMS_ITS | Encounter Summary ---
Author Organization [facility] Address [address] [place] [address] Care Team Providers Care Bed Operator Name Role Phone Anson Montano MD Primary Care Provide r Encounter Details Date Type Department Care Team (Late st Contact Info) Description 12/30/2024 8:45 AM CDT Hospital Encounter [facility] [employer] [address] [place] [address] Arrived Social History Tobacco Use Types Packs/Day Years Used Date Smoking Tobacco: Never Smokeless Tobacco: Never Personal Safety Answer Date Recorded Getting School Help Needed Not on file 04/28 Comments No Sex and Gender Information Value Date Recorded Sex Assigned at Not on file Legal Sex Female 2:38 PM CDT Gender Identity Not on file Sexual Orientation Not on file documented as of this encounter Plan of Treatment Not on file documented as of this encounter Procedures Procedure Name Priority Date/Time Associated Diagnosis Comments CT BODY OUTSIDE REFERENCE Routine 12/30/2024 8:45 AM CDT documented in this encounter Results * CT Body Outside Reference (12/30/2024 8:45 AM CDT) Narrative RAD_JAHAIRA_[facility]_MHE - 01/10/2025 8:31 AM CDT This order has been auto-finalized and does not contain a result. us Provider Transcribed Order IMG CT PROCEDURES Fin al Result [facility]_CLARIO_[facility]_MHE documented in this encounter Visit Diagnoses Not on filedocumented in this encounter Care Teams Bed Operator Relationship Specialty Start Date End Date Anson Montano MD [address] [place] [address] PCP - General Emergency Medicine 12/22/21 documented as of this encounter
--- OUTSIDE RECORDS SUMMARY | 2025-01-10 15:06 | XMS_ITS | Clinical Summary ---
Author Organization [facility] herring Address [address] [place] [address] Phone Care Team Providers Care Relay Shop Tester Name Role Phone Anson Montano MD Primary Care Provider [phone] Allergies No known active allergies Medications cyclobenzaprine [...] tablet 5 12/09/2021 Active Vitamins-Lipotr opics (Complex [id number]) tablet controlled-rele ase Take by mouth Active [...] Done Comments Influenza Vaccine (#1) 2024 Insurance [facility] Care Teams Relay Shop Tester Relationship Specialty Start Date End Date Anson Montano MD [address] [facility] [address] [place] [phone] PCP - General Internal Medicine 08/16/21
--- OUTSIDE RECORDS SUMMARY | 2025-01-10 15:06 | XMS_ITS | Clinical Summary ---
Author Organization [facility] Address [address] [place] [phone] Care Team Providers Care Line Builder Name Role Phone Anson Montano MD Primary [...] pelvis. 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 Assessment & Plan (12/22/2021 10:59 AM CDT): Hydralazine and lisinopril Encounters Date Type Department Care Team Description 01/08/2025 Orders Only [facility] [address] [place] [address] [address] [place] [address] Provider, MD Coty 12/30/2024 8:45 AM CDT Hospital Encounter [facility] [employer] [address] [facility] [place] [address] Arrived 12/02/2024 Telephone [facility] [address] [place] [address] Joseline Carroll MA 12/02/2024 Orders Only [facility] [address] [place] [address] Stan Neff MD from Last 3 Months [...] Vaccine (1 of 2) 10/13/2017 Covid-19 Vaccine ( - 2024-2 6 season) 2024 01/29/2021, 05/01/2020, 04/10/2020 Influenza Vaccine (#1) 2024 Pneumococcal vaccine <65 Aged Out No longer eligible based on patient's age to complete this topic Procedures Procedure Name Priority Date/Time Associated Diagnosis Comments CTA ABDOMEN Schedule Routine, Read Routine (OP Routine) 12/30/2024 3:[address] BODY OUTSIDE REFERENCE Routine 12/30/2024 8:45 AM CDT from Last 3 Months Results * CTA Abdomen (12/30/2024 3:26 PM CDT) Anatomical Region Laterality Modality Abdomen N/A Computed Tomogra phy us Historical Provider MD IMG CT PROCEDURES Final R esult * CT Body Outside Reference (12/30/2024 8:45 AM CDT) Narrative [id number] - 01/10/2025 8:31 AM CDT This order has been auto-finalized and does not contain a result. us Provider Transcribed Order IMG CT PROCEDURES Fin al Result [id number] from Last 3 Months Insurance [facility] Care Teams Line Builder Relationship Specialty Start Date End Date Anson Montano MD [address] [place] [address] PCP - General Emergency Medicine 12/22/21
--- OUTSIDE RECORDS SUMMARY | 2025-01-10 15:06 | XMS_ITS | Clinical Summary ---
Author Organization [facility] Address [address] [phone] Phone Care Team Providers Care Retail Brand Ambassador Name Role Phone Anson Montano MD Primary Care Provider Social History Tobacco Use Types Packs/Day Years [...] Most Recently Relevant to Health Maintenance Insurance [facility] Care Teams Retail Brand Ambassador Relationship Specialty Start Date End Date Anson Montano MD [address] [place] [address] PCP - General Internal Medicine 05/14/19
--- OUTSIDE RECORDS SUMMARY | 2025-01-10 15:06 | XMS_ITS | Encounter Summary ---
Author Organization [facility] Address [address] [place] [address] Care Team Providers Care Overlay Plastician Name Role Phone Anson Montano MD Primary Care Provide r Reason for Referral * MRI/CAT/PET Scan (Routine) - Closed Specialty Diagnoses / Procedures Referred By Contac t Referred To Contact Radiology Procedures CTA Abdomen Coty Nelson MD [address] [place] [address] Phone: tel: Referral ID Status Reason Start Date Expiration Date Visits Re quested Visits Authorized [id number] Closed 01/08/2025 02/07/2026 1 1 Encounter Details Date Type Department Care Team (Late st Contact Info) Description 01/08/2025 Orders Only [facility] V[facility] and Vein Surgery [address] [facility] [address] [place] [phone] Coty Nelson MD [address] [place] [id number] Social History Tobacco Use Types Packs/Day Years [...] Routine (OP Routine) 12/30/2024 3:26 PM CDT documented in this encounter Results * CTA Abdomen (12/30/2024 3:26 PM CDT) Anatomical Region Laterality Modality Abdomen N/A Computed Tomogra phy us Historical Provider MD [facility] CT PROCEDURES Final R esult documented in this encounter Visit Diagnoses Not on filedocumented in this encounter Care Teams Overlay Plastician Relationship Specialty Start Date End Date Anson Montano MD [address] [place] [address] PCP - General Emergency Medicine 12/22/21 documented as of this encounter
[2025-01-10 16:37] LABS: Potassium 3.6 mmol/L (3.4-5.0)
== END 2025-01-10 15:05 | disposition home or self-care (01) ==
LOC: ANHLAB 15:05
PROVIDERS: PCP Emergency Medicine; Visit Provider Emergency Medicine
DX: E87.6 Hypokalemia (principal)
CPT/HCPCS: 36415; 84132